=== PATIENT | female | born 1950 | race African-American/Black ===

== ENCOUNTER 2016-04-21 14:31 | Inpatient (IN) | payer MEDICARE ==
[~2016-04-21] VITALS: Ht 170.2 cm; Wt 100.1 kg
--- NOTE | ~2016-04-21 | HEMODYNAMI ---
PATIENT:ARLYN JACOME MEDICAL RECORD: [id number] : 46 [id number] ADMISSION DATE: 04/21/16 Generatedon:04/22/201616:34 Patient name: ARLYN JACOME Patient #: [id number] SSN: [id number] : 1950 Date of study: 04/22/2016 Page: Of Hemodynamic Procedure Report Patient Data Patient Demographics Procedure consent was obtained First Name: ARLYN Gender: Female Last Name: NAA : 1950 [facility] Initial: J Age: 66 year(s) Patient #: [id number] Race: Black SSN: [id number] Additional ID: [id number] Contact details [address]: [address] [place] [address] State: [place] City: [place] Zip code: [address] Past Medical History Allergies Allergen Reaction Date Comments Reported Adhesive tape 04/22/2016 Codeine 04/22/2016 Iodine 04/22/2016 Admission Admission Data Admission Date: 04/21/2016 Admission Time: 18:41 Room #: D.2132 Lab Results Lab Result Date: 04/22/2016 Lab Result Time: 0:00 Biochemistry Name Units Result Min Max Creatinine mg/dl 1.2 --(---*)-- 0.6 1.3 CBC Name Units Result Min Max Hemoglobin g/dl 9.7 *-(----)-- 13.5 17.5 Procedure Procedure Types Cath Procedure Diagnostic Procedure LHC LHC w/Coronaries PCI Procedure Coronary Stent Initial Procedure Description Procedure Date Procedure Date: 04/22/2016 Procedure Start Time: 16:09 Procedure End Time: 16:34 Procedure Staff Name Function Spencer Seo MD Performing Physician Katarina Worrell RT Scrub Shakira Pantoja RN Nurse Yajaira Pacheco RT Monitor Procedure Data Cath Procedure Fluoroscopy Diagnostic fluoroscopy Total fluoroscopy Time: 2.3 time: 2.3 min min Diagnostic fluoroscopy Total fluoroscopy dose: dose: 204.77 mGy 204.77 mGy Contrast Material Contrast Material Type Amount (ml) Isovue 300 76 Entry Location Entry Primary Successful Side Size Upsize Upsize Entry Closure Lowery ccessful Closure Location (Fr) 1 (Fr) 2 (Fr) Remarks Device Remarks Radial Right 6 Fr Unable Mechanical artery Short to Compression advance sheath Femoral Right 5 Fr 6 Fr Vascade artery Short Closure System Estimated blood loss: 5 ml Diagnostic catheters Device Type Used For End Catheter Placement Cordis 5Fr Pigtail LV Angiography Catheter (MP) Cordis 5Fr JL 4.0 Left Coronary Catheter (MP) Angiography Cordis 5Fr 3DRC Catheter Right Coronary (MP) Angiography Procedure Complications No complications Procedure Medications Medication Administration Route Dosage Oxygen NC 2 l/min Heparin Flush Bag added to field 2 bags (1000units/500ml NS) Lidocaine 2% added to field 20 Solumedrol I.V. 125 mg Pepcid I.V. 20 mg Versed I.V. 1 mg Fentanyl I.V. 50 mcg Versed I.V. 1 mg Fentanyl I.V. 50 mcg Fentanyl I.V. 50 mcg Radial Cocktail I.A. 1 syringe (Verapomil 2mg/Nitro 400mcg/Heparin 1500units) Radial Cocktail added to field 1 syringe (Verapomil 2mg/Nitro 400mcg/Heparin 1500units) Heparin Bolus I.V. 4000 units Integrilin (Bolus I.V. 8.5 ml 2mg/ml) Plavix P.O. 600 mg Hemodynamics Rest HGB: 9.7 (g/dl) Heart Rate: 86 (bpm) Snapshots Pre Cath Intra NCS Post Cath Vital Signs Time Heart Resp SPO2 NIBP (mmHg) Rhythm Pain Sedation Rate (ipm) (%) Status Level (bpm) 15:58:29 90 15 98 131/76(105) NSR 0 (11) 10(A) , No pain 16:02:55 85 15 98 134/75(118) NSR 0 (11) 10(A) , No pain 16:07:22 85 18 97 124/69(97) NSR 0 (11) 10(A) , No pain 16:11:44 85 21 95 123/67(97) NSR 0 (11) 9(A) , No pain 16:16:00 87 22 96 98/54(72) NSR 0 (11) 9(A) , No pain 16:20:14 83 18 95 106/59(85) NSR 0 (11) 9(A) , No pain 16:24:30 81 18 95 113/62(84) NSR 0 (11) 10(A) , No pain 16:28:48 82 17 96 107/53(73) NSR 0 (11) 10(A) , No pain 16:33:06 83 20 96 112/60(93) NSR 0 (11) 10(A) , No pain Medications Time Medication Route Dose Verified Delivered Reason Note s Effectiveness by by 16:00:29 Oxygen NC 2 l/min Spencer Shakira Per physician Rayray Pantoja RN 16:00:37 Heparin Flush added 2 bags Spencer Shakira used for Bag to Rayray Pantoja vaccine specialist (1000units/500ml field NS) 16:00:45 Lidocaine 2% added 20ml Spencer Shakira used for to vial Rayray Pantoja vaccine specialist field 16:00:54 Solumedrol I.V. 125 mg Spencer Shakira used for Rayray Pantoja RN procedure 16:00:56 Radial Cocktail added 1 Spencer Spencer used for (Verapomil to syringe Rayray Seo MD procedure 2mg/Nitro field 400mcg/Heparin 1500units) 16:01:05 Pepcid I.V. 20 mg Spencer Shakira Per physician Rayray Pantoja RN 16:06:11 Versed I.V. 1 mg Spencer Shakira for sedation Rayray Pantoja RN 16:06:16 Fentanyl I.V. 50 mcg Spencer Shakira for sedation Rayray Pantoja RN 16:09:05 Versed I.V. 1 mg Spencer Shakira for sedation Rayray Pantoja RN 16:09:08 Fentanyl I.V. 50 mcg Spencer Shakira for sedation Rayray Pantoja RN 16:10:37 Fentanyl I.V. 50 mcg Spencer Shakira for sedation Rayray Pantoja RN 16:11:02 Radial Cocktail I.A. 1 Spencer Spencer for (Verapomil syringe Rayray Seo MD vasodilation 2mg/Nitro 400mcg/Heparin 1500units) 16:23:42 Heparin Bolus I.V. 4000 Spencer Shakira for units Rayray Pantoja RN anticoagulation 16:25:01 Integrilin I.V. 8.5 ml Spencer siu (Bolus 2mg/ml) Rayray Pantoja RN antiplatelet therapy 16:28:27 Plavix P.O. 600 mg Spencer Pantoja RN antiplatelet therapy Procedure Log Time Note 15:40:23 Yajaira Counts RT(R) sent for patient. Start room use. 15:47:06 Informed consent obtained and on chart 15:50:43 Patient received from PCU to CCL 2 Alert and oriented. Tansferred to table in Supine position. 15:57:05 Vital chart was started 16:00:29 Oxygen 2 l/min NC was given by Shakira Pantoja RN; Per physician; 16:00:37 Heparin Flush Bag (1000units/500ml NS) 2 bags added to field was given by Shakira Pantoja RN; used for procedure; 16:00:45 Lidocaine 2% 20ml vial added to field was given by Shakira Pantoja RN; used for procedure; 16:00:54 Solumedrol 125 mg I.V. was given by Shakira Pantoja RN; used for procedure; 16:00:56 Radial Cocktail (Verapomil 2mg/Nitro 400mcg/Heparin 1500units) 1 syringe added to field was given by Spencer Seo MD; used for procedure; 16:01:05 Pepcid 20 mg I.V. was given by Shakira Pantoja RN; Per physician; 16:01:33 Time tracking: Regular hours 16:01:37 Plan of Care:Hemodynamics will remain stable., Cardiac rhythm will remain stable., Comfort level will be maintained., Respiratory function will remain adequate., Patient/ family verbilizes understanding of procedure., Procedure tolerated without complication., Recovers from procedure without complications.. 16:01:52 Warm blankets applied, and omega hugger turned on for patient comfort. 16:01:53 Correct patient and procedure confirmed by team. 16:01:55 ECG and BP/O2 sat monitors applied to patient. 16:02:00 Rhythm: sinus rhythm 16:02:11 Full Disclosure recording started 16:02:32 H&P Date Dictated: 04/21/2016 Within 30 days and on chart.. 16:02:33 Pre-procedure instructions explained to patient. 16:02:33 Pre-op teaching completed and patient verbalized understanding. 16:02:34 Family in waiting room. 16:02:36 Patient NPO since Midnight. 16:03:17 Patient allergic to Adhesive tape 16:03:24 Patient allergic to Codeine 16:03:59 Patient allergic to Iodine 16:04:00 Is the patient allergic to Iodine/contrast media? Yes. 16:04:02 Was the patient premedicated? Yes 16:04:19 Patient diabetic? Yes. 16:04:33 If diabetic: On Metformin? No 16:04:38 Previous problem with sedation/anesthesia? No ? 16:04:40 Snore? Yes 16:04:40 Sleep apnea? Yes 16:04:41 Deviated septum? No 16:04:42 Opens mouth fully? Yes 16:04:44 Sticks out tongue? Yes 16:04:45 Airway obstruction? No ? 16:04:49 Dentures? No ? 16:04:53 Pre procedure: right dorsailis pedis pulse 1+ Palpable, but thready & weak; easily obliterated 16:04:55 Modified Chance's test Ulnar < 7 seconds 16:04:56 Patient pain scale 0/10 ?. 16:05:01 IV patent on arrival in left forearm with 0.9% NaCl at [facility]. 16:05:25 Lab Result : Creatinine 1.2 mg/dl 16:05:25 Lab Result : Hemoglobin 9.7 g/dl 16:05:28 Zero performed for pressure channel P1 16:05:32 Lab results completed and on chart. 16:05:33 Zero performed for pressure channel P1 16:05:42 Right Radial & Right Groin area was prepped with chlora-prep and draped in sterile fashion 16:05:43 Alarms reviewed by R. N. 16:05:43 Sharps counted by scrub and verified by R.N. 16:05:44 Final Timeout: patient, procedure, and site verified with staff and physician. All members of the team are in agreement. 16:05:47 Right Radial site verified by team. 16:05:49 Physical assessment completed. ASA score P 3 - A patient with severe systemic disease as per Spencer Seo MD. 16:05:51 Sedation plan: IV Moderate Sedation Versed, Fentanyl 16:06:11 Versed 1 mg I.V. was given by Shakira Pantoja RN; for sedation; 16:06:16 Fentanyl 50 mcg I.V. was given by Shakira Pantoja RN; for sedation; 16:06:49 Use device set Radial Dx 16:06:50 Acist Syringe opened to sterile field. 16:06:51 Cardinal Cath Pack opened to sterile field. 16:06:51 Bag Decanter opened to sterile field. 16:06:51 Terumo 6Fr Slender Glidesheath opened to sterile field. 16:06:52 St Ravi 260cm J .035 wire opened to sterile field. 16:06:53 Acist Hand Control opened to sterile field. 16:06:53 Acist Manifold opened to sterile field. 16:06:55 Tegaderm 4 x 4 opened to sterile field. 16:07:48 Baseline sample Acquired. 16:09:05 Versed 1 mg I.V. was given by Shakira Pantoja RN; for sedation; 16:09:08 Fentanyl 50 mcg I.V. was given by Shakira Pantoja RN; for sedation; 16:09:44 Procedure started. 16:09:50 Local anesthetic to right radial artery with Lidocaine 2% by Spencer Seo MD.INITIAL ACCESS ONLY 16:10:37 Fentanyl 50 mcg I.V. was given by Shakira Pantoja RN; for sedation; 16:10:56 A 6 Fr Short sheath was inserted into the Right Radial arteryUnable to advance sheath 16:11:02 Radial Cocktail (Verapomil 2mg/Nitro 400mcg/Heparin 1500units) 1 syringe I.A. was given by Spencer Seo MD; for vasodilation; 16:16:16 St Ravi 260cm J .035 wire opened to sterile field. 16:16:41 J wire contaminated 16:17:00 Sheath removed intact; hemostasis achieved with Mechanical Compression to the Right Radial artery. 16:17:10 Local anesthetic to right femoral artery with Lidocaine 2% by Spencer Seo MD.ADDITIONAL ACCESS 16:17:44 A 5 Fr sheath was inserted into the Right Femoral artery 16:17:53 Use device set Multipack Set 16:17:54 Cordis Infinity 5Fr Multipack catheter opened to sterile field. 16:18:17 A Cordis 5Fr Pigtail Catheter (MP) was advanced over the wire and used for LV Angiography. 16:18:24 Terumo 6Fr Maria Stein Sheath opened to sterile field. 16:18:25 Terumo 5Fr Maria Stein Sheath opened to sterile field. 16:18:33 LV gram done using GONZALEZ 16:18:37 EF : 60 % 16:18:38 LV hemodynamics recorded. 16:18:40 Injector settings: Ml/sec: 5, Volume: 15, 16:18:42 Catheter removed. 16:19:08 A Cordis 5Fr JL 4.0 Catheter (MP) was advanced over the wire and used for Left Coronary Angiography. 16:20:15 Catheter removed. 16:20:24 A Cordis 5Fr 3DRC Catheter (MP) was advanced over the wire and used for Right Coronary Angiography. 16:21:45 Catheter removed. 16:22:04 HealthCare.comisper J 300cm 0.014 guide wire opened to sterile field. 16:22:04 HailoixCompak Inflation Kit opened to sterile field. 16:23:10 Medtronic Launcher 6Fr HS I guide catheter opened to sterile field. 16:23:20 Sheath upsized to a 6 Fr Short. 16:23:26 ACC PCI Site: mRCA has ?% stenosis. 16:23:28 ACC Pre-intervention RADHA Flow is 3. 16:23:33 6 Fr HS I guide catheter was inserted over the wire 16:23:42 Heparin Bolus 4000 units I.V. was given by Shakira Pantoja RN; for anticoagulation; 16:24:48 Whisper wire advanced. 16:25:01 Integrilin (Bolus 2mg/ml) 8.5 ml I.V. was given by Shakira Pantoja RN; for antiplatelet therapy; 16:25:21 Inflation Number: 1 A Medtronic Integrity 3.5 X 22 stent was prepped and advanced across the Mid RCA. The stent was deployed at 13 JOEY for 0:06 (min:sec). 16:25:32 Stent catheter was removed intact over wire. 16:25:33 Wire removed. 16:25:33 Guide catheter removed. 16:25:47 Sheath removed intact; hemostasis achieved with Vascade Closure System to the Right Femoral artery. 16:25:49 Procedure ended.(Physican Out) 16:27:35 Fluoroscopy time 02.30 minutes. 16:27:46 Fluoroscopy dose: 204.77 mGy 16:27:46 Flurop Dose total: 204.77 16:27:50 Contrast amount:Isovue 300 76ml. 16:27:51 Sharps counted by scrub and verified by R.N. 16:27:55 TR band inflated with 13cc of air. 16:28:27 Plavix 600 mg P.O. was given by Shakira Pantoja RN; for antiplatelet therapy; 16:29:03 Insertion/operative site no bleeding no hematoma. 16:29:05 Post-op/insertion site Right Femoral artery dressed using a 4 x 4 and Tegaderm. 16:29:09 Post right femoral artery:stable, clean and dry 16:29:20 Post right radial artery:stable, clean and dry 16:29:56 Post Procedure Pulses reassessed and unchanged 16:30:07 Post-procedure physical assessment completed. ASA score P 2 - A patient with mild systemic disease as per Spencer Seo MD. 16:30:11 Post procedure rhythm: sinus rhythm 16:30:13 Estimated blood loss: 5 ml 16:30:15 Post procedure instruction explained to patient.Patient verbalizes understanding. 16:30:16 Patient needs reinforcement of post procedure teaching. 16:30:21 Procedure type changed to Cath procedure, Diagnostic procedure, LHC, LHC w/Coronaries, PCI procedure, Coronary Stent Initial 16:30:26 Procedure Complication : No complications 16:30:28 See physician's report for complete and final results. 16:31:28 Terumo TR Band Standard opened to sterile field. 16:32:37 Vascade 6/7 Fr Closure Device opened to sterile field. 16:32:51 Procedure and supply charges have been captured, reviewed, submitted and are correct. 16:33:01 Vital chart was started 16:34:07 Vital chart was stopped 16:34:10 Report given to PCU. 16:34:13 Patient transfered to PCU with Bed. 16:34:22 Procedure ended. 16:34:22 Full Disclosure recording stopped 16:34:44 End room use (Document Last) Intervention Summary Intervention Notes Time ActionType Lesion and Equipment Action# Pressure Duration Attributes Used 16:25:21 Place stent Mid RCA Medtronic 1 13 00:06 Integrity 3.5 X 22 stent Device Usage Item Name Manufacture Quantity Catalog Hospital Part Current Minima l Lot# / Number Charge Number Stock Stock Serial# Code Acist Acist 1 80651 063281 871058 942116 20 Syringe Medical Systems Inc Cardinal Cardinal 1 [id number] 959342 98725 656958 5 Cath Pack Health Bag Microtek 1 2001S 076190 15410 060286 5 Decanter Medical Inc. Terumo 6Fr Terumo 1 [id number] 045218 812581 377389 [address] St Ravi 2 051860 975150 980461 189671 30 260cm J .035 wire Acist Hand Acist 1 42530 426241 298479 544822 5 Control Medical Systems Inc Acist Acist 1 67572 028460 139688 859077 5 Manifold Medical Systems Inc Tegaderm 4 3M 1 1626W 352630 276488 207698 5 x 4 Cordis Cardinal 1 [id number] 460347 20511 892791 30 Infinity Health 5Fr Multipack catheter Cordis 5Fr Cardinal 1 458316 5 Pigtail Health Catheter (MP) Terumo 6Fr Terumo 1 [id number] 346586 694482 760586 40 Maria Stein Sheath Terumo 5Fr Terumo 1 [id number] 937344 551126 678435 40 Maria Stein Sheath Cordis 5Fr Cardinal 1 598214 5 JL 4.0 Health Catheter (MP) Cordis 5Fr Cardinal 1 656509 5 3DRC Health Catheter (MP) Simms Simms 1 [id number] 854022 386280 261867 5 Whisper J Vascular 300cm 0.014 guide wire Merit Merit 1 [id number] 603494 803193 689654 15 [facility] Medical Inflation Kit Medtronic Medtronic 1 [id number] 089522 76384 351182 1 Launcher 6Fr HS I guide catheter Medtronic Medtronic 1 [id number] 863428 344647 9 [id number] Integrity 3.5 X 22 stent Terumo TR Terumo 1 [id number] 058529 310748 739961 40 Band Standard Vascade 6/7 Cardiva 1 [id number] 904431 088295 704223 5 Fr Closure Medical, Device Inc. Signature Audit [place] Stage Time Signature Unsigned Intra-Procedure 04/22/2016 Yajaira 4:34:54 PM Counts RT(R) Signatures Monitor : Yajaira Signature : Counts RT Date : Time : [address] [place] [address]
[~2016-04-21 14:31] MED LIST: CARAFATE1 G PO; CARDURA2 MG PO; COUMADIN5 MG PO; COZAAR100 MG PO; FERROUS SULFAT325 MG PO; HUMALOG 30100 UNITS/ SC; HYDROCODONE-APA1 TAB PO; KLOR-CON 1010 MEQ PO; LANTUS INSULIN10 ML SC; LASIX40 MG PO; NEXIUM40 MG PO; NORVASC10 MG PO; PROAIR HFA8.5 GM INH; ZEBETA10 MG PO; ZYLOPRIM300 MG PO
[2016-04-21 15:38] LABS: BASOPHILS 0.2 % (0.0-2.0); EOSINOPHILS 2.5 % (0-7); HEMATOCRIT 30.1 % (36.0-48.0); HEMOGLOBIN 9.7 g/dL (12-16); IMMATURE GRANULOCYTES 0.2 % (0-5); LYMPHOCYTES 18.1 % (15-50); MCH 26.9 pg (26.0-34.0); MCHC 32.2 g/dL (31.0-37.0); MCV 83.6 fL (80.0-100.0); MEAN PLATELET VOLUME 10.7 fL (7.4-10.4); MONOCYTES 9.8 % (2-11); NEUTROPHILS 69.2 % (40-80); PLATELET COUNT 271 10x3/uL (130-400); RDW 15.3 % (11.5-14.5); WBC 12.6 10x3/uL (4.8-10.8)
[2016-04-21 16:07] LABS: ALKALINE PHOSPHATASE 136 U/L (46-116); ALT (SGPT) 13 U/L (10-68); BILIRUBIN - TOTAL 0.36 mg/dL (0.2-1.3); CALC OSMOLALITY 280 mosm/kg (275-300); CALCIUM 9.1 mg/dL (8.5-10.1); CARBON DIOXIDE 23.7 mmol/L (21.0-32.0); CHLORIDE - SERUM 104 mmol/L (98-107); CREATININE - SERUM 1.3 mg/dL (0.6-1.3); POTASSIUM - SERUM 3.7 mmol/L (3.5-5.1); PROTEIN - SERUM 7.7 g/dL (6.4-8.2); SODIUM 138 mmol/L (136-145); UREA NITROGEN 16 mg/dL (7-18); eGFR NON AFRICAN AMERICAN 43 mL/min (90-120)
[2016-04-21 16:08] LABS: GLUCOSE 174 mg/dL (74-106)
[2016-04-21 16:15] LABS: CREATINE KINASE 109 UL (21-215)
[2016-04-21 16:17] LABS: TROPONIN-I < 0.017 ng/mL (0.000-0.060)
[2016-04-21 19:18] LABS: INR 1.68 (0.85-1.17); PROTIME 19.8 SECONDS (11.6-15.0)
--- NOTE | 2016-04-21 20:25 | NUR ---
RECEIVED TO ROOM 2131 ALERT AND ORIENTED X3 66 Y/O FEMALE SEEN BY DR NOWAK WITH DX OF UNSTABLE ANGINA. TELEMETRY PLACED. O2 @ 2 L NC IN USE. UP AD PAT W/O DIFF. RESP UNLAB. 4+ PITTING SVETA NNOTED TO BILAT LOWER LEGS AND FEET. DENIES PAIN OR DISCOMFORT AT THIS TIME. RT AC SL INTACT WITH NO R/S NOTED AT SITE. HOB UP SR UP X2. C/L IN REACH. CONTINUE TO MONITOR.
[2016-04-21 21:39] VITALS: BP 130/68
[2016-04-21 22:54] VITALS: BP 130/68; BMI 33.0
[2016-04-22 00:46] VITALS: BP 154/78
--- NOTE | 2016-04-22 03:45 | NUR ---
FFP HUNG AT THIS TIME. VIA GRAVITY TO RT AC WITH NO R/S NOTED AT SITE. VS WNL. DENIES NEEDS C/L IN REACH.
[2016-04-22 04:00] VITALS: BP 145/73
--- NOTE | 2016-04-22 05:00 | NUR ---
SECOND UNIT OF [facility] HUNG AT THIS TIME. DYAN WELL. C/L IN REACH. REMAINS NPO FOR AM PROCEDURE. CONTINUE TO MONITOR.
[2016-04-22 05:39] LABS: BASOPHILS 0.4 % (0.0-2.0); EOSINOPHILS 4.3 % (0-7); MCH 26.6 pg (26.0-34.0); MCHC 31.7 g/dL (31.0-37.0); MCV 83.9 fL (80.0-100.0); MEAN PLATELET VOLUME 10.3 fL (7.4-10.4); MONOCYTES 10.7 % (2-11); NEUTROPHILS 68.6 % (40-80); PLATELET COUNT 224 10x3/uL (130-400); RDW 15.2 % (11.5-14.5)
[2016-04-22 05:47] LABS: HEMOGLOBIN 7.6 g/dL (12-16); RBC 2.86 10x6/uL (4.00-5.40); WBC 7.3 10x3/uL (4.8-10.8)
[2016-04-22 05:51] LABS: ANION GAP 12.1 mmol/L (8-16); CARBON DIOXIDE 25.4 mmol/L (21.0-32.0); CREATININE - SERUM 1.2 mg/dL (0.6-1.3); POTASSIUM - SERUM 3.5 mmol/L (3.5-5.1)
--- NOTE | 2016-04-22 07:45 | NUR ---
INRODUCED MYSELF TO PT PRIMARY RN FOR TODAYS SHIFT. PT IS ALERT AND ORIENTED RESTING QUIETLY IN BED. TELEMETRY IN PLACE AND RUNNING SR. RR NONLABORED ON RA. PT HAS A R.AC PIV WITH DRSG CDI AND SWAB CAPS IN USE. PT IS CURRENTLY NPO FOR A CATH LATER TODAY. BILAT LEGS HAVE +4 PITTING EDEMA WITH THE LEFT LEG SLIGHTLY BIGGER AND OCCASIONALLY WEEPING. PT STATES SHE CANT AMBULATE R/T PAST ORTHO PROBLEMS IN HER R.KNEE. OFFERED SCDS FOR DVT BUT PT REFUSED R/T LEGS BEING TENDER TO TOUCH FROM SWELLING. PT DENIES ANY CURRENT PAIN OR FURTHER NEEDS AT THIS TIME. CL IN REACH, BED IN LOWEST, SIDE RAILS X2. WILL CPOC.
[2016-04-22 09:21] VITALS: BP 130/73
--- NOTE | 2016-04-22 11:46 | NUR ---
BLOOD TRANSFUSING WITHOUT ANY S/S OF REACTION. VSS, SLIGHTLY HYPERTENSIVE BUT IS BASELINE FOR THIS PT. PT RESTING AND DENIES ANY PAIN OR FURTHER NEEDS AT THIS TIME. CL IN REACH. WILL CPOC.
[2016-04-22 12:28] VITALS: BP 152/83
--- NOTE | 2016-04-22 13:47 | NUR ---
TRANSFUSION STILL INFUSING WITHOUT ANY S/S OF REACTION NOTED. PT RESTING QUIETLY, C/O SLIGHT BACK DISCOMFORT WHICH IS CHRONIC AND REQUESTED PRN PAIN MED, NONE ON EMAR SO NOTIFIED DOCTOR AND REC'D ORDERS. PT VOICED THANKS AND DENIES ANY FURTHER NEEDS AT THIS TIME. CL IN REACH, BED IN LOWEST, SIDE RAILS X2. WILL CPOC.
--- NOTE | 2016-04-22 14:42 | NUR ---
PTS BLOOD TRANSFUSION COMPLETED. FLUSHING LINE NOW. SALINE LOCKED PIV WITH DRSG CDI AND SWAB CAPS IN USE. VSS THROUGHOUT ENTIRE TRANSFUSION. PT DENIES ANY NEEDS AT THIS TIME. WILL CPOC.
--- NOTE | 2016-04-22 15:06 | NUR ---
PT REFUSED SCDS R/T HER LEGS BEING SO SWOLLEN AND TIGHT AND ARE OFTEN VERY PAINFUL.
--- NOTE | 2016-04-22 15:47 | NUR ---
CATH CALLED FOR PREOP. PREOP COMPLETED. PT LEAVING FOR SPOT FACER AT THIS TIME. DENIES ANY CURRENT NEEDS. WILL CPOC.
--- NOTE | 2016-04-22 16:49 | NUR ---
PT RETURNED TO ROOM FROM CUSTOMER DEVELOPMENT MANAGER. RR NONLABORED ON RA. BP 137/73 VIA L.ARM. HR 70, TEMP 98.7 AND O2 SAT 98% PT IS AWAKE BUT SLEEPY. RPITAIN HAS DRSG CDI NO S/S OF HEMATOMA OR BLEEDING NOTED. PERIPHERAL PULSES PALP. R.WRIST HAS TR BAND IN PLACE AND IS DRY WITHOUT S/S OF BLEEDING. PT VERBALIZED UNDERSTANDING OF LYING FLAT FOR 4 HOURS. CONNECTED R.AC PIV TO NS @100ML/HR FOR 4 HOURS. PT RESTING AND DENIES ANY FURTHER NEEDS AT THIS TIME. CL IN REACH, BED IN LOWEST, SIDE RAILS X2. WILL CTM.
--- NOTE | 2016-04-22 18:07 | NUR ---
FSBS 328. PT REC'D 8 UNITS PER SS. ORDERED PT A FINGER FOOD TRAY AND SHE IS EATING WHILE STILL LYING BACK ORDERED FROM GIS PHYSICAL SCIENTIST. R.CASEY DRSG CDI NO S/S OF HEMATOMA OR BLEEDING. R.WRIST TR BAND IN PLACE AND CDI WELL. PT RESTING COMFORTABLY EATING DINNER. NO FURTHER NEEDS AT THIS TIME. WILL CPOC.
[2016-04-22 20:53] VITALS: BP 120/69
--- NOTE | 2016-04-23 00:20 | NUR ---
RESTING WITH EYES CLOSED, RESPERATIONS EVEN, NO S/S DISTRESS NOTED.
[2016-04-23 00:41] VITALS: BP 119/58
--- NOTE | 2016-04-23 03:24 | NUR ---
ASSIST PT WITH USE OF BED PACHECO, REPOSITIONED IN BED FOR COMFORT.
--- NOTE | 2016-04-23 03:58 | NUR ---
MEDICAL CENTER REPRESENTATIVE AT BEDSIDE TO OBTAIN VITALS, CALL LIGHT IN REACH. WILL CONTINUE WITH PLAN OF CARE.
[2016-04-23 05:34] VITALS: BP 182/84
--- NOTE | 2016-04-23 07:48 | NUR ---
IN ROOM TALKING WITH PT. PT STATES SHE SLEPT WELL. RR NONLABORED ON RA. PTS R.GROIN DRSG CDI NO S/S OF HEMATOMA NOTED AT SITE. PTS R.AC PIV CAME OUT. CATHETER TIP FULLY INTACT. CLEANED SITE WITH ALCOHOL PAD AND PLACE BANDAID OVER SITE. STATED NO NEED FOR NEW ACCESS. PT RESTING AND DENIES ANY CURRENT PAIN OR NEEDS. CL IN REACH, BED IN LOWEST, SIDE RAILS X2. WILL CPOC.
[2016-04-23 09:12] VITALS: BP 147/74
--- NOTE | 2016-04-23 09:45 | NUR ---
Rehab Note- Order received for Rehab Prescreen. Patient has [employer] Insurance & will requires a Pre Auth prior to IRF stay. Will need a PT & OT eval for Pre Auth with [employer]. Thank you for this referral! Tiffanie Jacob RN Clinical Liaison, [facility]
--- NOTE | 2016-04-23 09:58 | NUR ---
ADMINISTERED MORNING MEDICATIONS. PT REQUESTED AND WAS PROVIDED WITH PRN PAIN PILL FOR BACK PAIN. PT RESTING QUIETLY IN BED JUST REC'D FULL BED BATH AND ALL LINENS AND GOWN WAS CHANGED. NEW TELEMETRY ELECTRODES PLACE. PT RUNNING SR. PT DENIES ANY FURTHER NEEDS AT THIS TIME. CL IN REACH, BED IN LOWEST, SIDE RAILS X2. WILL CPOC.
[2016-04-23 12:15] VITALS: BP 135/66
[2016-04-23 13:27] LABS: BASOPHILS 0.1 % (0.0-2.0); EOSINOPHILS 0 % (0-7); HEMATOCRIT 30.8 % (36.0-48.0); HEMOGLOBIN 10.1 g/dL (12-16); IMMATURE GRANULOCYTES 0.2 % (0-5); LYMPHOCYTES 6.5 % (15-50); MCH 27.3 pg (26.0-34.0); MCHC 32.8 g/dL (31.0-37.0); MCV 83.2 fL (80.0-100.0); MEAN PLATELET VOLUME 11.2 fL (7.4-10.4); NEUTROPHILS 87.2 % (40-80); PLATELET COUNT 234 10x3/uL (130-400); WBC 13.5 10x3/uL (4.8-10.8)
[2016-04-23 13:33] LABS: ANION GAP 13.7 mmol/L (8-16); CALCIUM 8.5 mg/dL (8.5-10.1); CARBON DIOXIDE 23.1 mmol/L (21.0-32.0); CREATININE - SERUM 1.4 mg/dL (0.6-1.3); POTASSIUM - SERUM 3.8 mmol/L (3.5-5.1)
--- NOTE | 2016-04-23 15:59 | NUR ---
Patient Name: ARLYN JACOME Admission Status: ER Accout number: [id number] Admission Date: 04-22-2016 : 1950 Admission Diagnosis: Attending: MARILUZ Current LOS: 1 Anticipated DC Date: Planned Disposition: Inpatient Rehab Primary Insurance: [employer] MEDICARE ADV Discharge Planning Comments: * Is the patient Alert and Oriented? Yes 0 * How many steps to enter\exit or inside your home? NONE 0 * PCP DR. HERERRA 0 * Pharmacy [facility] 0 * Preadmission Environment Home Alone 0 * ADLs Independent 0 * Equipment Other Oxygen Walker 0 * Other Equipment HOME OXYGEN POWER WHEELCHAIR [employer] [facility] MEDICAL EQUIP[facility] PROVIDER PREFERENCE 0 * List name and contact numbers for known caregivers / representatives who currently or will assist patient after discharge: PORTIA BETH, DAUGHTER, 0 * Community resources currently utilized None 0 * Please name any agencies selected above. NONE 0 * Additional services required to return to the preadmission environment? Yes * Can the patient safely return to the preadmission environment? Yes 0 * Has this patient been hospitalized within the prior 30 days at any hospital? No 0 CM RECEIVED ORDER FOR INPATIENT REHAB PRESCREEN, MET WITH PT IN ROOM TO DISCUSS DISCHARGE PLANNING AND NEEDS. PT REPORTS LIVING AT HOME INDEPENDENTLY AND ALONE. PT HAS POWER WHEELCHAIR THAT IS NOT WORKING WELL AND PT IS TRYING TO WAIT ONE MORE YEAR SO SHE CAN GET A NEW ONE. PT HAS A WALKER AND HOME OXYGEN THAT SHE USES NEEDED. PT'S PROVIDER OF CHOICE IS [employer] [facility] [employer]. PT HAS NO OUTSIDE SERVICES ASSISTING IN THE HOME. FAMILY TO ADMINISTRATIVE ASSISTANT FRONT DESK AT DISCHARGE. CM DISCUSSED AVAILABILITY OF HOME HEALTH, REHAB SERVICES AND MEDICAL EQUIPMENT. PT REQUESTED INPATIENT REHAB SERVICES AT [facility]. PT REPORTS HAVING HAD REHAB IN [place] BEFORE WITH GOOD RESULTS, PT PLANS TO DISCHARGE HOME INDEPENDENTLY AFTER REHAB. IMPORTANT MESSAGE FROM MEDICARE PROVIDED AND EXPLAINED. CM SPOKE TO FLAVIO OF INPATIENT REHAB WHO INFORMED CM THAT PT WILL REQUIRE BOTH PT AND OT EVALUATIONS AND AUTHORIZATION FROM INSURANCE. INPATIENT REHAB TO MONITOR AND WILL COMPLETE SCREENING AND SUBMIT FOR INSURANCE AUTHORIZATION THAT MAY TAKE SEVERAL DAYS. DR. NOWAK NOTIFIED. PT NOTIFIED. CM WAITING COMPLETION OF PT AND OT EVALUATIONS, REHAB PRESCREEN AND INSURANCE AUTHORIZATION FOR INPATIENT REHAB SERVICES. Foundation Maker: Sedrick Curran
[2016-04-23 16:00] VITALS: BP 147/71
--- NOTE | 2016-04-23 16:23 | OP ---
PATIENT NAME: ARLYN JACOME MEDICAL RECORD: [id number] :46 LOCATION:D.M2 D.2132 ADMISSION DATE:04/22/16 SURGEON: FRANKY NOWAK MD DATE OF OPERATION: 04/22/2016 PROCEDURES: 1. PTCA stent RCA. 2. Left heart catheterization. 3. Selective coronary angiography. 4. Left ventriculogram. INDICATION: Unstable angina and coronary artery disease. PROCEDURE IN DETAIL: After informed consent was obtained and after detailed explanation of risks, benefits as well as alternative therapies, the patient elected to proceed with angiogram and angioplasty. The right femoral area was prepped and draped in normal sterile fashion. The right femoral artery was cannulated via modified Seldinger technique with placement of 6-Kosovan sheath. All catheters exchanged through this sheath. FINDINGS: The left ventriculogram was performed in standard 30-degree GONZALEZ view, reveals good cardiac wall motion throughout all segments. Overall ejection fraction estimated 60%. SELECTIVE CORONARY ANGIOGRAPHY: 1. Left main is with no significant angiographic disease. 2. Left anterior descending has moderate irregularities, but no flow-limiting stenosis. 3. The left circumflex shows moderate irregularities, but no flow-limiting stenosis. 4. The right coronary has a 75% to 80% stenosis in the mid vessel. PTCA STENT OF THE RIGHT CORONARY: The stent used was a 3.5 x 22 mm Integrity. Result was 0% residual stenosis. OVERALL IMPRESSION: Successful percutaneous transluminal coronary angioplasty stent of the right coronary artery going from 75-80% initial stenosis to 0% residual stenosis. TRANSINT:[id number] Voice Confirmation ID: [id number] DOCUMENT ID: [id number] FRANKY NOWAK MD at 1623 CC: [id number] DICTATION DATE: 04/22/16 1631 COMPUTER TECH: 04/22/16 2309 [place] [address]
--- NOTE | 2016-04-23 16:23 | HP ---
PATIENT: ARLYN CHAWLA MEDICAL RECORD: [id number] ACCOUNT: [id number] LOCATION:[address] : [birth year] ADMISSION DATE: 04/22/16 HISTORY AND PHYSICAL EXAMINATION ADMITTING DIAGNOSES: 1. Chest pain followed with angina. 2. Coronary artery disease. 3. Previous myocardial infarction. 4. Insulin-dependent diabetes. 5. Hypertension. 6. Hyperlipidemia. HISTORY OF PRESENT ILLNESS: Mrs. Chawla has a past history of coronary artery disease, previous myocardial infarction, the last being in the . Last cardiac catheterization was as well in the . She did not have any stents at that time. She has had approximately 1 week of increasing episodes of chest. She ____ class IV unstable anginal symptomatology. Troponin is normal. PHYSICAL EXAMINATION: GENERAL APPEARANCE: Well-nourished, well-developed, appears stated age. Level of distress, comfortable. PSYCHIATRIC: Mental status, alert, normal affect. Orientation, oriented to time, place and person. EYES: Lids and conjunctiva, noninjected. No discharge, no pallor. ENT: Lips, teeth, gums, normal dentition. Oropharynx, no cyanosis, no pallor. NECK: Carotid arteries, bilateral normal upstroke, no bruits, no thrills. JUGULAR VEINS: No jugular venous pressure or distention. CERVICAL LYMPH NODES: Nontender, nonenlarged. THYROID: Not enlarged. Nontender. No nodules. LUNGS: Respiratory effort, unlabored. CHEST: Normal curvature. No thoracic deformity. No chest wall tenderness. Percussion, resonant. Auscultation, clear. No wheezes, no rales, no rhonchi. CARDIOVASCULAR: Precordial exam, nondisplaced. No heaves or pericardial thrills. Rate and rhythm, regular. Heart sounds, normal S1, normal S2. No S3, no gallop, no rub. Systolic murmur, not heard. Diastolic murmur, not heard. EXTREMITIES: No cyanosis, no edema. Peripheral pulses, full and equal in all extremities, except as noted. No bruits appreciated. ABDOMEN: Soft, nondistended. Normal aorta. No bruit. Nontender. No masses. Liver, nontender, no hepatomegaly. Spleen, nontender, no splenomegaly. MUSCULOSKELETAL: No joint tenderness. No joint swelling. No erythema. NEUROLOGICAL: Normal gait, normal strength, normal tone. SKIN: Warm and dry. REVIEW OF SYSTEMS: The patient reports easy bruising but reports no swollen glands. The patient reports no fever, no night sweats, no significant weight gain, no significant weight loss. No significant exercise tolerance. The patient reports no dry eyes, no irritation, no vision change. Patient reports no difficulty hearing and no ear pain. Patient reports no frequent nose bleeds or nose and sinus problems. Patient reports on arm pain on exertion. No shortness of breath while lying down. No history of heart murmur. Patient reports no cough, no wheezing or coughing up blood. Patient reports no abdominal pain, no vomiting. Normal appetite. No diarrhea and not vomiting blood. No nausea and no constipation. Patient reports no incontinence. No difficulty urinating. No hematuria. No increased frequency. Patient reports HISTORY AND PHYSICAL [id number] ARLYN CHAWLA no muscle aches. No weakness, no arthralgias, no back pain. No swelling of the extremities. Patient reports no abnormal mole, no jaundice, no rashes. Reports no loss of consciousness. No weakness and no numbness. No seizures, dizziness, or headaches. The patient reports no depression, no sleep disturbance, feeling safe in a relationship and no alcohol abuse. Patient reports on fatigue. Reports no runny nose or sinus pressure. No itching, no hives, and no frequent sneezing. OVERALL IMPRESSION: Chest pain compatible with angina, most likely she has hemodynamically significant coronary artery disease. She is on Coumadin for a past history of atrial fibrillation. INR is 1.68, will give FFP as well. She has an IODINE ALLERGY. We will give prednisone. Plan for cardiac catheterization in the a.m. as for the diabetes, will consult Dr. Moreno for diabetic management. TRANSINT:[id number] Voice Confirmation ID: [id number] DOCUMENT ID: [id number] FRANKY NOWAK MD at 1623 CC: [id number] DICTATION DATE: 04/21/162328 DAIRY ASSOCIATE: 04/21/16 2342 [place] [address]
--- NOTE | 2016-04-23 20:00 | NUR ---
ASSESSMENT COMPLETE, A&O. RESPERATIONS EVEN ON ROOM AIR. DRSG TO RIGHT GROIN C/D/I. NO SWELLING, BLEEDING OR HEMATOMA NOTED. PEDAL PULSES PRESENT. 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 PT DENIES PAIN OR NEEDS, VISITOR AT BED SIDE. BED LOW, CL IN REACH.
[2016-04-23 20:41] VITALS: BP 137/71
[2016-04-24 02:28] VITALS: BP 125/72
--- NOTE | 2016-04-24 03:53 | NUR ---
RESTING WITH EYES CLOSED, RESPERATIONS EVEN, NO S/S DISTRESS NOTED.
--- NOTE | 2016-04-24 05:32 | NUR ---
CALL LIGHT IN REACH. WILL CONTINUE WITH PLAN OF CARE.
--- NOTE | 2016-04-24 06:20 | NUR ---
AM BLOOD SUGAR CHECK, 169, PT STATED THAT SHE WANTED TO WAIT UNTIL LATER TO GET INSUIN COVERAGE WITH BREAKFAST BEAUSE SHE IS WORRIED THAT HER BS MAY DROP TO LOW. ASSIST TO WITH BED PACHECO, PT DENIES OTHER NEEDS.
[2016-04-24 07:11] LABS: BASOPHILS 0.2 % (0.0-2.0); EOSINOPHILS 0.3 % (0-7); HEMATOCRIT 29.9 % (36.0-48.0); HEMOGLOBIN 9.7 g/dL (12-16); IMMATURE GRANULOCYTES 0.3 % (0-5); LYMPHOCYTES 16.2 % (15-50); MCH 27.4 pg (26.0-34.0); MCHC 32.4 g/dL (31.0-37.0); MCV 84.5 fL (80.0-100.0); MEAN PLATELET VOLUME 10.3 fL (7.4-10.4); MONOCYTES 8.9 % (2-11); NEUTROPHILS 74.1 % (40-80); PLATELET COUNT 253 10x3/uL (130-400); RBC 3.54 10x6/uL (4.00-5.40); RDW 15.5 % (11.5-14.5); WBC 14.9 10x3/uL (4.8-10.8)
[2016-04-24 07:27] LABS: ANION GAP 11.8 mmol/L (8-16); CALCIUM 8.1 mg/dL (8.5-10.1); CARBON DIOXIDE 24.8 mmol/L (21.0-32.0); CREATININE - SERUM 1.2 mg/dL (0.6-1.3); POTASSIUM - SERUM 3.6 mmol/L (3.5-5.1)
[2016-04-24 08:10] VITALS: BP 124/68
[2016-04-24 11:18] VITALS: Ht 170.2 cm; Wt 100.1 kg
[2016-04-24 12:14] VITALS: BP 114/62
--- NOTE | 2016-04-24 12:16 | NUR ---
atient Name: ARLYN JACOME Encounter No: [id number] : 1950 Primary Insurance: [employer] MEDICARE ADV Anticipated DC Date: Planned Disposition: Inpatient Rehab External Planned Provider: : DCP follow-up note: Patient and family in agreement with discharge plan. No changes to plan. Case management will follow and assist as needed. CM WAITING COMPLETION OF PT AND OT EVALUATIONS, REHAB PRESCREEN AND INSURANCE AUTHORIZATION FOR INPATIENT REHAB SERVICES. Vanessa Nails RN/CM
--- NOTE | 2016-04-24 14:05 | NUR ---
Reviewed patient's chart for IRF. She is still lacking an OT eval. [facility] will not accept a request for authorization until the PT and OT evals are completed. Sue Stein RN CL
[2016-04-24 15:54] VITALS: BP 108/69
[2016-04-24 19:10] LABS: SPE - A/G RATIO 0.7 (0.7-1.7); SPE - ALBUMIN 2.6 g/dL (2.9-4.4); SPE - ALPHA-1 GLOBULIN 0.4 g/dL (0.0-0.4); SPE - ALPHA-2 GLOBULIN 0.7 g/dL (0.4-1.0); SPE - GAMMA GLOBULIN 1.7 g/dL (0.4-1.8); SPE - M-SPIKE Not Observed g/dL (Not Observed); SPE - TOTAL PROTEIN 6.4 g/dL (6.0-8.5)
[2016-04-24 20:00] VITALS: BP 126/71
[2016-04-25] VITALS: BP 144/76
[2016-04-25 04:00] VITALS: BP 137/80
[2016-04-25 08:12] VITALS: BP 135/85
--- NOTE | 2016-04-25 09:15 | NUR ---
FSBS 140 NO INSULIN REQUIRED PER SS. PT ALERT AND ORIENTED RESTING QUIETLY IN BED. PT C/O BACK PAIN REQUESTING AND PROVIDED WITH PRN NORCO. PT NOW AGREES TO HAVE BOWEL REGIMEN AFTER REFUSING YESTERDAY AND WANTS A STOOL SOFTNER ORDERED. WILL GET ORDER FROM DOCTOR. PT DENIES ANY FURTHER NEEDS AT THIS TIME. CL IN REACH, BED IN LOWEST, SIDE RAILS X2. WILL CPOC.
[2016-04-25 12:03] VITALS: BP 178/79
[2016-04-25 12:03] LABS: BASOPHILS 0.3 % (0.0-2.0); EOSINOPHILS 3.6 % (0-7); HEMATOCRIT 30.2 % (36.0-48.0); HEMOGLOBIN 9.8 g/dL (12-16); IMMATURE GRANULOCYTES 0.2 % (0-5); LYMPHOCYTES 19.6 % (15-50); MCH 27.6 pg (26.0-34.0); MCHC 32.5 g/dL (31.0-37.0); MCV 85.1 fL (80.0-100.0); MEAN PLATELET VOLUME 10.8 fL (7.4-10.4); MONOCYTES 11.7 % (2-11); NEUTROPHILS 64.6 % (40-80); PLATELET COUNT 258 10x3/uL (130-400); RBC 3.55 10x6/uL (4.00-5.40); RDW 15.5 % (11.5-14.5); WBC 10.3 10x3/uL (4.8-10.8)
[2016-04-25 16:22] VITALS: BP 118/66
[2016-04-25 21:48] VITALS: BP 130/84
--- NOTE | 2016-04-25 22:48 | NUR ---
PT LAYING IN BED ON LEFT SIDE AND NO DISTRESS OBSERVED RESPERATIONS EVEN AND UNLABORED ON ROOM AIR CALL LIGHT IN REACH SRX2 BED LOW AND LOCKED PM MEDS ADMIN ORDERED WILL MONITOR
[2016-04-26 00:30] VITALS: BP 140/79
[2016-04-26 04:30] VITALS: BP 153/83
[2016-04-26 06:15] LABS: BASOPHILS 0.2 % (0.0-2.0); EOSINOPHILS 5.3 % (0-7); HEMATOCRIT 29.8 % (36.0-48.0); HEMOGLOBIN 9.4 g/dL (12-16); IMMATURE GRANULOCYTES 0.2 % (0-5); LYMPHOCYTES 19.4 % (15-50); MCH 27.2 pg (26.0-34.0); MCHC 31.5 g/dL (31.0-37.0); MCV 86.1 fL (80.0-100.0); MEAN PLATELET VOLUME 11.3 fL (7.4-10.4); MONOCYTES 12.6 % (2-11); NEUTROPHILS 62.3 % (40-80); PLATELET COUNT 249 10x3/uL (130-400); RBC 3.46 10x6/uL (4.00-5.40); RDW 15.8 % (11.5-14.5)
[2016-04-26 06:40] LABS: ALBUMIN 2.1 g/dL (3.4-5.0); ANION GAP 10.8 mmol/L (8-16); BILIRUBIN - TOTAL 0.1 mg/dL (0.2-1.3); CALCIUM 8.2 mg/dL (8.5-10.1); CARBON DIOXIDE 26.1 mmol/L (21.0-32.0); POTASSIUM - SERUM 3.9 mmol/L (3.5-5.1)
[2016-04-26 08:01] VITALS: BP 147/90
[2016-04-26 12:00] VITALS: BP 152/87
[2016-04-26 14:00] VITALS: BP 143/77
[2016-04-26 20:30] VITALS: BP 134/78
--- NOTE | 2016-04-26 22:50 | NUR ---
RESUMED CARE OF PT AT THIS TIME CALL LIGHT IN REACH SR X2 BED LOW AND LOCKED NO DISTRESS OBSERVED RESPERATIONS EVEN AND UNLABORED ON ROOM AIR WILL MONITOR
[2016-04-27 00:30] VITALS: BP 126/80
--- NOTE | 2016-04-27 01:28 | NUR ---
PT LAYING IN BED EYES CLOSED AND PT APPERS TO BE SLEEPING NO DISTRESS OBSERVED AT THIS TIME CALL LIGHT IN REACH WILL MONITOR
[2016-04-27 04:30] VITALS: BP 126/78
--- NOTE | 2016-04-27 06:44 | NUR ---
RECEIVED REPORT FROM COLLISION CENTER MANAGER NURSE, GIGI DAY. PT IN BED, DENIES ANY NEEDS AT THIS TIME. CALL LIGHT IN REACH, NAD NOTED, WILL CONTINUE TO MONITOR.
[2016-04-27 08:00] VITALS: BP 128/73
--- NOTE | 2016-04-27 08:40 | NUR ---
ADMINISTERED MORNING MEDICATIONS, PT IN BED, HELPED PT WITH BED PACHECO. INFOMRED PT TO CALL WHEN SHE IS DONE USING BEDPAN. PT DENIES ANY OTHER NEEDS AT THIS TIME. CALL LIGHT IN REACH, NAD NOTED, WILL CONTINUE TO MONITOR.
--- NOTE | 2016-04-27 10:15 | NUR ---
ADMINSTERED NORCO 10MG FOR PAIN LEVEL OF 9/10. PT UP TO CHAIR, DENIES ANY OTHER NEEDS AT THIS TIME.CALL LIGHT IN REACH, NAD NOTED, WILL CONTINUE TO MONITOR.
[2016-04-27 12:00] VITALS: BP 109/64
--- NOTE | 2016-04-27 12:54 | NUR ---
Nutrition follow-up: Diet: ADA consistent CHO PO intake 100% of meals Labs reviewed Wt: 220# Pt with good po intake @ this time. RDN following.
--- NOTE | 2016-04-27 15:35 | NUR ---
All information has been submitted to [facility] for authorization for inpatient rehab. It is doubtful they will approve because PT has not attempted to walk her nor does she seem interested in doing so. To qualify for IRF she must be able and willing to participate in 3 hrs of therapy every day 5 days a week. Sue Stein RN Clinical Liaison, Rehab
[2016-04-27 16:00] VITALS: BP 106/45
--- NOTE | 2016-04-27 16:50 | NUR ---
ADMINISTERED 8 UNITS OF HUMALOG FOR BLOOD SUGAR OF 233, PER SLIDING SCALE. ALSO PLACED PT ON BED PACHECO AND HELPED HER OFF, PT ONLY URINATED. PT DENIES ANY OTHER NEEDS AT THIS TIME. CALL LIGHT IN REACH, NAD NOTED, WILL CONTINUE TO MONITOR.
--- NOTE | 2016-04-27 19:59 | NUR ---
RECEIVED REPORT, PT SLEEPING, ON ROOMAIR, [id number], CALL LIGHT IN REACH, BED IS LOW, SRX2
[2016-04-27 21:27] VITALS: BP 131/75
[2016-04-28] VITALS: BP 134/76
[2016-04-28 04:00] VITALS: BP 128/71
--- NOTE | 2016-04-28 04:48 | NUR ---
PT LAYING IN BED NO DISTRESS OBSERVED CALL LIGHT IN REACH SRX2 BED LOW AND LOCKED WILL MONITOR
--- NOTE | 2016-04-28 04:53 | NUR ---
SLEEPING ON L.SIDE, CALL LIGHT IN REACH, BED IS LOW, SRX2
--- NOTE | 2016-04-28 07:15 | NUR ---
RECIEVED REPORT ON PATIENT, PATIENT IS ALERT AND ORIENTED AT THIS TIME. PATIENT IS SR ON MONITOR WITH A RATE OF 87 AT THIS TIME. PATIENT IS ON ROOM AIR WITH NAD NOTED AT THIS TIME, CHEST RISES AND FALLS EQUALLY. PATIENT DENIES ANY NEEDS OR COMPLAINTS AT THIS TIME. BED IS LOW AND LOCKED. CALL LIGHT IN REACH. CPOC
[2016-04-28 08:07] VITALS: BP 120/65
--- NOTE | 2016-04-28 09:15 | NUR ---
MORNING MEDICATION GIVEN, ASSESSMENT DONE. PATIENT STATES HER PAIN LEVEL IS 6/10 IN HER BACK AND DOWN HER SIDE BUT DENIES THE NEEDS FOR PAIN MEDICATION AT THIS TIME. WILL CONT TO MONITOR PATIENT. CPOC
--- NOTE | 2016-04-28 09:34 | NUR ---
Rehab Note- The patient has [employer] benefits- Pre Auth has been sent for approval for possible IRF stay. Awaiting approval. Will continue to monitor. Tiffanie Jacob RN Clinical Liaison, Rehab Care/Veronica
--- NOTE | 2016-04-28 10:59 | NUR ---
PHYSICAL THERAPY GOT PATIENT UP IN CHAIR. PATIENT DENIES ANY NEEDS. CPOC
[2016-04-28 12:14] VITALS: BP 135/75
--- NOTE | 2016-04-28 12:45 | NUR ---
PATIENT SITTING UP IN BED EATING LUNCH, DENIES ANY NEEDS CPOC
[2016-04-28 15:45] VITALS: BP 121/61
--- NOTE | 2016-04-28 16:00 | NUR ---
PATIENT RESTING AT THIS TIME. DENIES ANY NEEDS. STATES PAIN 6/10 IN BACK AND SIDE. BUT DENIES NEEDS FOP PAIN MEDICATION AT THIS TIME. WILL CONT TO MONITOR
--- NOTE | 2016-04-28 17:32 | NUR ---
PATIENT FSBS 161, 4 UNITS OF HUMALOG GIVEN. CPOC
--- NOTE | 2016-04-28 17:45 | NUR ---
PATIENT SITTING UP IN BED VISITING WITH FRIEND. PATIENT DENIES ANY NEEDS. CPOC
[2016-04-28 19:00] VITALS: BP 115/78
--- NOTE | 2016-04-28 19:32 | NUR ---
RECEIVED REPORT, ASSIST PT WITH BEDPAN, [id number], BED IS LOW, SRX2, CALL LIGHT IN REACH
--- NOTE | 2016-04-29 01:18 | NUR ---
PT LAYING IN BED EYES CLOSED NO DISTRESS OBSERVED AT THIS TIME RESPERATIONS EVEN AND UNLBAORED ON ROOM AIR BED LOW AND LOCKED CALL LIGHT IN REACH SRX2 WILL MONITOR
[2016-04-29 04:00] VITALS: BP 116/70
--- NOTE | 2016-04-29 06:08 | NUR ---
SLEEPING, CALL LIGHT IN REACH, BED IS LOW, SRX2
--- NOTE | 2016-04-29 07:31 | NUR ---
RECIEVED REPORT ON PATIENT, PATIENT IS ALERT AND ORIENTED AT THIS TIME. PATIENT IS SR ON MONITOR WITH A RATE OF 70 AT THIS TIME. PATIENT DENIES ANY NEEDS OR PAIN AT THIS TIME. AWAITING REHAB PLACEMENT. WILL CONT TO MONITOR. CPOC
[2016-04-29 08:12] VITALS: BP 150/76
--- NOTE | 2016-04-29 09:30 | NUR ---
MORNING MEDICATION GIVEN, NO ISSUES. ASSESSMENT DONE. PATIENT DENIES ANY NEEDS AT THIS TIME. WILL CONT TO MONITOR
--- NOTE | 2016-04-29 10:25 | NUR ---
Recieved a call from Erin with [employer] managed medicare. Acute Inpatient Rehab is denied for this patient. She has not been able to ambulate and the medical device sales feels she is more skilled appropriate. This information has been relayed to the [facility]. Sue Stein RN Clinical Liaison, Rehab
--- NOTE | 2016-04-29 11:30 | NUR ---
PATIENT FSBS 129. NO INSULIN REQUIRED. CPOC
[2016-04-29 12:04] VITALS: BP 138/80
[2016-04-29] MEDS ORDERED: ASPIRIN81 MG PO (12:56)
[2016-04-29] MEDS ORDERED: PLAVIX75 MG PO (12:56)
--- NOTE | 2016-04-29 14:00 | NUR ---
PATIENT GIVEN NORCO FOR PAIN 10/10 IN SHOULDER, BACK AND COCCYX. ACHING PAIN. WILL MONITOR. CPOC
[2016-04-29 16:25] VITALS: BP 128/73
--- NOTE | 2016-04-29 16:30 | NUR ---
PATIENT STATES PAIN IS GETTING BETTER, 11/26. WILL MONITOR. FSBS 163, 4 UNITS OF HUMALOG GIVEN. CPOC
--- NOTE | 2016-04-29 18:38 | NUR ---
PATIENT SITTING UP IN BED, VISITIORS AT BEDSIDE, PATIENT DENIES ANYNEEDS OR COMPLAINTS. CPOC
--- NOTE | 2016-04-29 19:30 | NUR ---
RECEIVED REPORT, WATCHING TV, DENIES ANY NEEDS, CALL LIGHT IN REACH, BED IS LOW, SRX2, [id number], WILL CONTINUE TO MONITOR
[2016-04-29 20:00] VITALS: BP 122/64
[2016-04-30] VITALS: BP 130/67
--- NOTE | 2016-04-30 02:26 | NUR ---
LYING IN BED WITH CALL LIGHT IN REACH. WILL CONTINUE WITH PLAN OF CARE.
[2016-04-30 04:00] VITALS: BP 134/77
--- NOTE | 2016-04-30 05:13 | NUR ---
ASSISTED PT ON BEDPAN, BED IS LOW, SRX2, CALL LIGHT IN REACH
--- NOTE | 2016-04-30 07:15 | NUR ---
RECIEVED REPORT ON PATIENT, PATIENT IS ALERT AND ORIENTED AT THIS TIME. PATIENT DOES NOT AN IV AT THIS TIME. PATIENT IS GOING TO REHAB TODAY. PATIENT IS SR ON MONITOR WITH A RATE OF 64 AT THIS TIME. DENIES ANY PAIN OR NEEDS. WILL CONT TO MONITOR PATIENT. CPOC
[2016-04-30 08:43] VITALS: BP 127/73
--- NOTE | 2016-04-30 09:15 | NUR ---
MORNING MEDICATION GIVEN, ASSESSMENT DONE. DENIES ANY NEEDS. CPOC
--- NOTE | 2016-04-30 11:15 | NUR ---
PATIENT FSBS 152, 4 UNITS OF HUMALOG GIVEN. CPOC
[2016-04-30 12:11] VITALS: BP 138/79
--- NOTE | 2016-04-30 14:22 | NUR ---
PATIENT RESTING IN BED, DENIES ANY NEEDS OR PAIN AT THIS TIME. WILL CONT TO MONITOR PATIENT. CPOC
[2016-04-30 16:00] VITALS: BP 140/66
--- NOTE | 2016-04-30 16:12 | NUR ---
PATIENT SEEN FOR TRANSFER TRAINING. PATIENT REQUIRES MOD ASSIST FOR BED MOBILITY AND SUPINE TO SIT. PATIENT ABLE TO TRANSFER FROM BED TO CHAIR AND BACK TO BED WITH HIGH MOD/LOW MAX ASSIST. OVERALL BALANCE WAS FAIR, POOR AT TIMES. PATIENT WOULD BENEFIT FROM SKILLED PLACEMENT TO IMPROVE STRENGTH AND INDEPENDENCE IN ADLs. MARY ELLEN CELAYA, PT, DPT
--- NOTE | 2016-04-30 17:05 | NUR ---
REPORT GIVEN TO RHONDA TRUJILLO AT [facility]. DENIES ANY QUESTIONS. CPOC
--- NOTE | 2016-04-30 17:25 | NUR ---
PATIENT GIVEN DC INSTRUCTIONS, [employer] IS PROVIDED WITH PAPERWORK, WILL GIVE PAPERWORK TO [facility]. PATIENT DENIES ANY QUESTIONS. CPOC
--- NOTE | 2016-04-30 17:25 | NUR ---
Patient Name: ARLYN JACOME Encounter No: [id number] : 1950 Primary Insurance: [employer] MEDICARE ADV Anticipated DC Date: 04-30-2016 Planned Disposition: Custodial Facility External Planned Provider: [facility], MEDICARE REHAB BED DCP follow-up note: CM RECEIVED DENIAL OF INPATIENT REHAB BY PT'S INSURANCE FROM [facility] ON 04-29-16. CM SPOKE TO PT IN ROOM AND NOTIFIED OF DENIAL, DISCUSSED REHAB OPTIONS. PT REPORTS SHE IS NOT ABLE TO STAND TO RETURN HOME AND STATED THAT SHE WANTED TO THINK ABOUT IT AND WOULD LET CM KNOW. CM EXPLAINED THAT IF PT IS NOT ABLE TO SAFELY GO HOME, SHE ONLY HAS ONE OPTION, [facility]. PT CONSENTED TO REHAB SCREENING BY [facility] AND WILL GO IF AUTHORIZED BY INSURANCE. CM FAXED REFERRAL TO [facility]. CM CALLED [facility] ON MORNING OF 04-30-16 AND WAS ADVISED THAT [facility] HAS SUBMITTED FOR AND IS PENDING AUTH FROM PT'S INSURANCE. BARB NIETO SPOKE TO PT'S INSURANCE COMPANY AND FACILITATED AUTHORIZATION. PT NOTIFIED WHO IS WILLING TO GO TO [facility] TODAY. BRAB NIETO COMMUNICATED WITH NEVILLE SCHMITT [facility], PROVIDED AUTHORIZATION NUMBER. [facility] K[facility] TO PULP REFINER OPERATOR PT TODAY FOR TRANSFER TO REHAB. CM FAXED DISCHARGE INFORMATION TO [facility] AT [phone]. NURSE REPORT TO BE CALLED TO [facility] AT [phone]. [employer] KIT TO PULP REFINER OPERATOR PT TODAY. Sedrick Curran, CASE MANAGEMENT
--- NOTE | 2016-04-30 17:40 | NUR ---
[facility] HERE FOR TRANSPORT, GIVEN DC PAPERWORK AND INSTRUCTIONS. CPOC
--- NOTE | 2016-05-01 11:11 | DS ---
PATIENT:ARLYN CHAWLA :[birth year] MEDICAL RECORD: [id number] DISCHARGE SUMMARY ADMISSION DATE: 04/22/16 DISCHARGE DATE: 04/30/16 DISCHARGE DIAGNOSES: 1. Angina. 2. Coronary artery disease. 3. Percutaneous transluminal coronary angioplasty stent this admission. 4. Diabetes. 5. Hypertension. 6. Chronic obstructive pulmonary disease. HOSPITAL COURSE: Mrs. Chawla presents with anginal symptomatology, found to have single-vessel coronary artery disease, underwent successful PTCA stent with a bare metal stent, had an uneventful course from a cardiac standpoint. She had trouble ambulating, which was not a new problem. She requested rehabilitation evaluation. She was turned down for inpatient rehabilitation. She went to a senior living facility after this. The only change in her medication is the addition of aspirin and Plavix to her medications. TRANSINT:[id number] Voice Confirmation ID: [id number] DOCUMENT ID: [id number] FRANKY NOWAK MD at 1111 CC: [id number] DICTATION DATE: 04/29/16 1200 MORTGAGE BRANCH MANAGER: 04/29/16 1226 DIS IN 04/30/16 [place] [id number] [place] [id number]
== END 2016-04-30 18:05 | DRG 249 ==
LOC: OBSVTIME → D.ER 14:31 → D.M2 18:41 → D.ER 18:41 → D.M2 18:41 → OBSVTIME 18:41 → EDSTATUS 04-22 08:30 → D.M2 04-22 16:20 → D.OPS 04-22 16:29 → D.M2 04-22 16:29
PROVIDERS: Emergency Medicine; Family Medicine Adult Medicine; Internal Medicine Hematology & Oncology; ADMIT Internal Medicine Interventional Cardiology
PROC: B211YZZ Fluoroscopy of Multiple Coronary Arteries using Other Contrast (ICD-10-PCS; 2016-04-22)
PROC: B215YZZ Fluoroscopy of Left Heart using Other Contrast (ICD-10-PCS; 2016-04-22)
PROC: 02703DZ Dilation of Coronary Artery, One Artery with Intraluminal Device, Percutaneous Approach (ICD-10-PCS; principal; 2016-04-22 08:30)
PROC: 4A023N7 Measurement of Cardiac Sampling and Pressure, Left Heart, Percutaneous Approach (ICD-10-PCS; 2016-04-22 08:30)
DX: I25.119 Atherosclerotic heart disease of native coronary artery with unspecified angina pectoris (principal); I69.354 Hemiplegia and hemiparesis following cerebral infarction affecting left non-dominant side; I48.91 Unspecified atrial fibrillation; E11.9 Type 2 diabetes mellitus without complications; I10 Essential (primary) hypertension; I50.9 Heart failure, unspecified; Z99.3 Dependence on wheelchair

== ENCOUNTER → 2016-05-05 13:46 | Outpatient (CLI) | payer MEDICARE ==
[2016-04-24 11:18] VITALS: BMI 34.8
[~2016-05-05 13:46] MED LIST changes: +ASPIRIN81 MG PO; +MILK OF MAGNESI30 ML PO; +MULTIPLE VITAMI1 TA1 PO; +MYLANTA / MAALO30 ML PO; +PLAVIX75 MG PO; +PREPARATION H S48 EA RC
== END | disposition home or self-care (01) ==
LOC: D.RAD 13:45
DX: M25.562 Pain in left knee (principal); M25.572 Pain in left ankle and joints of left foot

== ENCOUNTER 2016-06-02 21:39 | Outpatient (CLI) | payer MEDICARE ==
[~2016-06-02] VITALS: Ht 170.2 cm; Wt 95.5 kg
[2016-06-02 21:21] LABS: BASOPHILS 0.4 % (0.0-2.0); EOSINOPHILS 3.8 % (0-7); HEMATOCRIT 23.7 % (36.0-48.0); IMMATURE GRANULOCYTES 0.3 % (0-5); MCH 26.8 pg (26.0-34.0); MCHC 31.2 g/dL (31.0-37.0); MCV 85.9 fL (80.0-100.0); MEAN PLATELET VOLUME 10.3 fL (7.4-10.4); MONOCYTES 8.1 % (2-11); NEUTROPHILS 67.4 % (40-80); PLATELET COUNT 296 10x3/uL (130-400); RBC 2.76 10x6/uL (4.00-5.40); RDW 17.3 % (11.5-14.5); WBC 12.8 10x3/uL (4.8-10.8)
[2016-06-02 21:27] LABS: HEMOGLOBIN 7.4 g/dL (12-16)
[~2016-06-02 21:39] MED LIST changes: -MILK OF MAGNESI30 ML PO; -MULTIPLE VITAMI1 TA1 PO; -MYLANTA / MAALO30 ML PO; -PREPARATION H S48 EA RC
[2016-06-02 22:03] LABS: APTT 31.1 SECONDS (22.8-39.4); INR 1.11 (0.85-1.17); PROTIME 14.2 SECONDS (11.6-15.0)
--- NOTE | 2016-06-02 22:45 | NUR ---
RECEIVED PT FROM ER TO ROOM 2132 VIA STRETCHER DX ANEMIA PT DENIES FEELING BAD AAOX4 RESP UNLABORED SKIN W/D DENIES ANY NEEDS OR DISCOMFORT AT THIS TIME
[2016-06-02 22:55] VITALS: BP 135/67; Ht 170.2 cm; Wt 95.5 kg
--- NOTE | 2016-06-02 23:35 | NUR ---
INFUSION OF #1 UNIT PRBCS STARTED PT TOLERATING WELL INFUSING PER PUMP TO RT HAND 20 GA IV ACCESS WITHOUT DIFFICULTY NO REDNESS OR EDEMA NOTED TO SITE
[2016-06-03] MEDS ORDERED: MULTIPLE VITAMI1 TA1 PO (00:05)
[2016-06-03] MEDS ORDERED: PREPARATION H S48 EA RC (00:07)
[2016-06-03] MEDS ORDERED: MILK OF MAGNESI30 ML PO (00:08)
[2016-06-03] MEDS ORDERED: MYLANTA / MAALO30 ML PO (00:08)
[2016-06-03 00:21] VITALS: BP 147/79
--- NOTE | 2016-06-03 02:00 | NUR ---
PRBCs INFUSION COMPLE FOR #1 UNIT NO SIGNS OR SYMPTOMS OF REACTION PT TOLERATED WELL
--- NOTE | 2016-06-03 02:20 | NUR ---
INFUSION OF #2 UNIT OF PRBCs STARTED AT THIS TIME NAD NOTED
[2016-06-03 06:45] LABS: BASOPHILS 0.6 % (0.0-2.0); EOSINOPHILS 4.1 % (0-7); IMMATURE GRANULOCYTES 0.4 % (0-5); LYMPHOCYTES 19.2 % (15-50); MCH 27.4 pg (26.0-34.0); MCHC 32.3 g/dL (31.0-37.0); MEAN PLATELET VOLUME 10.6 fL (7.4-10.4); MONOCYTES 8.1 % (2-11); NEUTROPHILS 67.6 % (40-80); PLATELET COUNT 262 10x3/uL (130-400); WBC 11.9 10x3/uL (4.8-10.8)
[2016-06-03 06:52] LABS: HEMATOCRIT 28.8 % (36.0-48.0); HEMOGLOBIN 9.3 g/dL (12-16); RBC 3.39 10x6/uL (4.00-5.40)
--- NOTE | 2016-06-03 08:23 | NUR ---
SITTING UP IN BED EATING BREAKFAST. WILL CONTINUE TO MONITOR.
[2016-06-03 08:40] VITALS: BP 161/75
[2016-06-03 12:25] VITALS: BP 158/87
[2016-06-03 15:28] VITALS: BP 162/88
--- NOTE | 2016-06-03 15:34 | NUR ---
SPOKE WITH TAWANA WITH [facility] VIA PHONE REGARDING DISCHARGE TRANSPORTATION TODAY. VAN TRANSPORTATION WILL BE PROVIDED BETWEEN 4:30-5:00 PM TODAY. REPORT TO BE CALLED TO TAWANA @ [phone].
--- NOTE | 2016-06-03 15:52 | NUR ---
Patient Name: ARLYN JACOME Admission Status: ER Accout number: [id number] Admission Date: 06-02-2016 : 1950 Admission Diagnosis: Attending: Nalini Garza Current LOS: 1 Anticipated DC Date: 06-03-2016 Planned Disposition: Half-Way Facility Primary [facility] Discharge Planning Comments: * Is the patient Alert and Oriented? Yes 0 * How many steps to enter\exit or inside your home? NONE 0 * PCP DR. KLEIN 0 * Pharmacy [facility] 0 * Preadmission Environment [facility] 0 * [facility] * ADLs Partial Dependent 0 * Partial ADLs (Assistance needed) Ambulation Bathing Medication Management Transfers 0 * Equipment Other 0 * Other Equipment ALL EQUIPMENT PROVIDED BY [facility] 0 * List name and contact numbers for known caregivers / representatives who currently or will assist patient after discharge: [facility], [facility] * Community resources currently utilized None 0 * Please name any agencies selected above. NONE 0 * Additional services required to return to the preadmission environment? No 0 * Can the patient safely return to the preadmission environment? Yes 0 * Has this patient been hospitalized within the prior 30 days at any hospital? No 0 CM RECEIVED DISCHARGE ORDER, SPOKE TO SECONDS INSPECTOR WHO REPORTS SHE HAS CALLED [facility] [place] TO CASH REGISTER MECHANIC PT TODAY BETWEEN 4:30 PM AND 5:00 PM. CM MET WITH PT IN ROOM WHO REPORTS SHE IS STILL IN REHAB AT [facility], IS GETTING GOOD CARE AND SERVICE THERE AND WILL RETURN TO REHAB TODAY. CM OFFERED TO CONTACT FAMILY / FRIENDS FOR PT, PT DECLINED AND REPORTS CALLING EVERYONE ALREADY. PT DENIES DISCHARGE NEEDS, REPORTS ABILITY TO SIT FOR DURATION OF VAN TRANSPORTATION. CM FAXED DISCHARGE INFORMATION TO [facility] AT [phone]. NURSE REPORT TO BE CALLED TO [facility] AT [phone]. VAN TO CASH REGISTER MECHANIC PT BETWEEN 4:40 AND 5:00PM TODAY. [employer]el Technology Instructor: Sedrick Curran
--- NOTE | 2016-06-03 16:28 | NUR ---
REPORT CALLED TO RHONDA RINCON.
== END 2016-06-03 19:33 | disposition home or self-care (01) ==
LOC: D.ER → OBSVTIME → D.OPS 21:39 → D.M2 21:39 → D.ER 21:39 → D.M2 21:39 → D.OPS 06-03 19:33 → D.M2 06-03 19:33
PROVIDERS: Emergency Medicine; Physician Assistant Medical
DX: D64.9 Anemia, unspecified (principal); E11.9 Type 2 diabetes mellitus without complications; I25.10 Atherosclerotic heart disease of native coronary artery without angina pectoris; I10 Essential (primary) hypertension; E78.5 Hyperlipidemia, unspecified; I50.9 Heart failure, unspecified; I69.319 Unspecified symptoms and signs involving cognitive functions following cerebral infarction; K21.9 Gastro-esophageal reflux disease without esophagitis; M54.5 Low back pain; M10.9 Gout, unspecified

== ENCOUNTER → 2016-08-06 19:11 | Outpatient (CLI) | payer MEDICARE ==
[2016-06-02 22:55] VITALS: BMI 32.9
[~2016-08-06 19:11] MED LIST changes: +MILK OF MAGNESI30 ML PO; +MULTIPLE VITAMI1 TA1 PO; +MYLANTA / MAALO30 ML PO; +PREPARATION H S48 EA RC
[2016-08-06 19:39] LABS: INR 2.12 (0.85-1.17); PROTIME 23.8 SECONDS (11.6-15.0)
== END | disposition home or self-care (01) ==
LOC: D.LABREF 19:11
PROVIDERS: Family Medicine
DX: Z51.81 Encounter for therapeutic drug level monitoring (principal); Z79.01 Long term (current) use of anticoagulants

== ENCOUNTER 2016-12-12 17:54 | Emergency (ER) | payer MEDICARE ==
[2016-06-02 22:55] VITALS: BMI 32.9
[2016-12-12 18:38] LABS: BASOPHILS 0.4 % (0-2); EOSINOPHILS 3.8 % (0-7); HEMOGLOBIN 8.2 g/dL (12-16); IMMATURE GRANULOCYTES 0.2 % (0-5); MCHC 32.8 g/dL (31.0-37.0); MCV 85.3 fL (80.0-100.0); MEAN PLATELET VOLUME 10.2 fL (7.4-10.4); MONOCYTES 8.1 % (2-11); NEUTROPHILS 68.5 % (40-80); PLATELET COUNT 375 10x3/uL (130-400); RBC 2.93 10x6/uL (4.00-5.40); RDW 14.6 % (11.5-14.5); WBC 11.5 10x3/uL (4.8-10.8)
[2016-12-12 18:53] LABS: ALBUMIN 2.7 g/dL (3.4-5.0); ALKALINE PHOSPHATASE 130 U/L (46-116); ALT (SGPT) 12 U/L (10-68); CALC OSMOLALITY 283 mosm/kg (275-300); CALCIUM 8.7 mg/dL (8.5-10.1); CARBON DIOXIDE 24.3 mmol/L (21.0-32.0); CHLORIDE - SERUM 105 mmol/L (98-107); CREATININE - SERUM 1.3 mg/dL (0.6-1.3); POTASSIUM - SERUM 3.3 mmol/L (3.5-5.1); PROTEIN - SERUM 7.9 g/dL (6.4-8.2); SODIUM 139 mmol/L (136-145); UREA NITROGEN 29 mg/dL (7-18); eGFR NON AFRICAN AMERICAN 43 mL/min (90-120)
[2016-12-12 18:56] LABS: GLUCOSE 95 mg/dL (74-106)
[2016-12-12 19:04] LABS: CHOL - HDL RATIO 2.9 ratio (2.3-4.1); CHOLESTEROL, TOTAL 113 mg/dL (0-200); CKMB 0.2 U/L (0.0-3.6); CREATINE KINASE 35 UL (21-215); HDL CHOLESTEROL 39 mg/dL (32-96); LDL CHOLESTEROL 52 mg/dL (0-100); LDL-HDL RATIO 1.3 ratio (1.5-3.5); TRIGLYCERIDE 114 mg/dL (30-200); TROPONIN-I < 0.017 ng/mL (0.000-0.060)
== END 2016-12-12 23:18 | disposition home or self-care (01) ==
LOC: D.ER 17:54
PROVIDERS: Emergency Medicine
DX: K21.9 Gastro-esophageal reflux disease without esophagitis (principal); R07.89 Other chest pain; E11.9 Type 2 diabetes mellitus without complications; Z79.4 Long term (current) use of insulin; I10 Essential (primary) hypertension

== ENCOUNTER 2017-03-02 12:01 | Outpatient (CLI) | payer MEDICARE ==
[~2017-03-02] VITALS: Ht 170.2 cm; Wt 70.9 kg
--- NOTE | ~2017-03-02 | HEMODYNAMI ---
PATIENT:ARLYN JACOME MEDICAL RECORD: [id number] : 46 [facility] [facility] [id number] ADMISSION DATE: 03/02/17 Generatedon:03/03/201713:19 Patient name: ARLYN JACOME Patient #: [id number] SSN: [id number] : 1950 Date of study: 03/03/2017 Page: Of Hemodynamic Procedure Report Patient Data Patient Demographics Procedure consent was obtained First Name: ARLYN Gender: Female Last Name: NAA : 1950 Middle Initial: J Age: 67 year(s) Patient #: [id number] Race: Black SSN: [id number] Additional ID: [id number] Contact details Address: [address] [place] [address] State: [place] City: [facility] Zip code: [address] Past Medical History Allergies Allergen Reaction Date Comments Reported Adhesive tape 04/22/2016 Codeine 04/22/2016 Iodine 04/22/2016 Other allergy 03/03/2017 CODEINE, IODINE, OMEPRAZOFE, LISINOPRIL, SILVER Admission Admission Data Admission Date: 03/02/2017 Admission Time: 14:55 Room #: D.2116 Lab Results Lab Result Date: 03/03/2017 Lab Result Time: 0:00 Biochemistry Name Units Result Min Max BUN mg/dl 22 --(----)-* 7 18 Creatinine mg/dl 1.1 --(--*-)-- 0.6 1.3 CBC Name Units Result Min Max Hemoglobin g/dl 8.7 *-(----)-- 13.5 17.5 Procedure Procedure Types Cath Procedure Diagnostic Procedure LHC LH w/Coronaries PCI Procedure Coronary Stent Coronary Stent Initial Miscellaneous Procedures Moderate Sedation up to 15 minutes Procedure Description Procedure Date Procedure Date: 03/03/2017 Procedure Start Time: 12:57 Procedure End Time: 13:12 Procedure Staff Name Function Royal Atkinson RT Monitor Katarina Worrell RT Scrub Kendell Figueredo RN Nurse Spencer Seo MD Performing Physician Procedure Data Cath Procedure Fluoroscopy Diagnostic fluoroscopy Total fluoroscopy Time: 2 time: 2 min min Diagnostic fluoroscopy Total fluoroscopy dose: dose: 121.82 mGy 121.82 mGy Contrast Material Contrast Material Type Amount (ml) Isovue 300 66 Entry Location Entry Primary Successful Side Size Upsize Upsize Entry Closure Succes sful Closure Location (Fr) 1 (Fr) 2 (Fr) Remarks Device Remarks Femoral Right 5 Fr 6 Fr Exoseal artery Short Estimated blood loss: 5 ml Diagnostic catheters Device Type Used For End Catheter Placement Cordis 5Fr Pigtail Procedure Catheter (MP) Cordis 5Fr JL 4.0 Procedure Catheter (MP) Cordis 5Fr 3DRC Catheter Procedure (MP) Procedure Medications Medication Administration Route Dosage Oxygen NC 2 l/min Benadryl I.V. 50 mg Versed I.V. 1 mg Fentanyl I.V. 50 mcg Heparin Bolus I.V. 4000 units Versed I.V. 0.5 mg Fentanyl I.V. 25 mcg Hemodynamics Rest HGB: 8.7 (g/dl) Heart Rate: 73 (bpm) Snapshots Pre Cath Intra NCS Post Cath Vital Signs Time Heart Resp SPO2 etCO2 NIBP (mmHg) Rhythm Pain Sedation Rate (ipm) (%) (mmHg) Status Level (bpm) 12:44:49 88 15 98 35.3 Measuring NSR 0 (11) 10(A) , No pain 12:45:03 83 20 98 34.5 176/99(154) NSR 0 (11) 10(A) , No pain 12:49:46 70 24 97 33.8 153/88(137) NSR 0 (11) 10(A) , No pain 12:54:18 74 28 97 34.5 169/97(145) NSR 0 (11) 10(A) , No pain 12:59:01 77 18 94 35.2 163/92(139) NSR 0 (11) 9(A) , No pain 13:03:39 74 16 100 15 155/88(132) NSR 0 (11) 9(A) , No pain 13:08:14 75 15 100 33 151/88(132) NSR 0 (11) 10(A) , No pain 13:12:46 74 14 100 31.5 164/88(138) NSR 0 (11) 10(A) , No pain Medications Time Medication Route Dose Verified Delivered Reason Notes Effe ctiveness by by 12:53:30 Oxygen NC 2 Spencer Buffie used for l/min Rayray Figueredo RN procedure 12:53:37 Benadryl I.V. 50 mg Spencer Carreraie used for Rayray Figueredo RN procedure 12:57:27 Versed I.V. 1 mg Spencer Buffie for sedation Rayray Figueredo RN 12:57:33 Fentanyl I.V. 50 Spencer Buffie for sedation mcg Rayray Figueredo RN 13:00:57 Heparin I.V. 4000 Spencer Carreraie for Bolus units Rayray Figueredo RN anticoagulation 13:02:01 Versed I.V. 0.5 Spencer Buffie for sedation mg Rayray Figueredo RN 13:02:05 Fentanyl I.V. 25 Spencer Buffie for sedation mcg Rayray Figueredo RN Procedure Log Time Note 12:10:39 Informed consent obtained and on chart 12:10:42 Diagnostic Cath Status : Elective 12:10:57 Katarina Worrell RT(R) sent for patient. Start room use. 12:10:58 Time tracking: Regular hours 12:11:03 Plan of Care:Hemodynamics will remain stable., Cardiac rhythm will remain stable., Comfort level will be maintained., Respiratory function will remain adequate., Patient/ family verbilizes understanding of procedure., Procedure tolerated without complication., Recovers from procedure without complications.. 12:25:31 Patient received from Med II to CCL 3 Alert and oriented. Tansferred to table in Supine position. 12:25:32 Correct patient and procedure confirmed by team. 12:25:32 Warm blankets applied, and omega hugger turned on for patient comfort. 12:25:34 ECG and BP/O2 sat monitors applied to patient. 12:42:59 Vital chart was started 12:43:01 Baseline sample Acquired. 12:44:03 Rhythm: sinus rhythm 12:44:05 Full Disclosure recording started 12:46:54 H&P Date Dictated: 03/02/2017 Within 30 days and on chart.. 12:47:00 Pre-op teaching completed and patient verbalized understanding. 12:47:00 Pre-procedure instructions explained to patient. 12:47:02 Family unavailable. 12:47:07 Patient NPO since Midnight. 12:48:00 Patient allergic to Other allergyCODEINE, IODINE, OMEPRAZOFE, LISINOPRIL, SILVER 12:48:09 Is the patient allergic to Iodine/contrast media? Yes. 12:48:11 Was the patient premedicated? Yes 12:48:34 Is patient on blood thinner?Yes 12:48:38 ACC The patient was administered the following blood thiners within the last 24 hours: ACCPlavix 12:48:41 Patient diabetic? Yes. 12:48:43 If diabetic: On Metformin? No 12:48:49 Patient not . Patient is over age 55. 12:48:50 ----Pre-sedation anethsthesia assessment.---- 12:48:53 Previous problem with sedation/anesthesia? No ? 12:48:55 Snore? Yes 12:48:57 Sleep apnea? Yes 12:48:58 Deviated septum? No 12:48:59 Opens mouth fully? Yes 12:49:00 Sticks out tongue? Yes 12:49:07 Airway obstruction? No ? 12:49:17 Dentures? No ? 12:49:23 Pre procedure: right dorsailis pedis pulse 1+ Palpable, but thready & weak; easily obliterated 12:49:29 Patient pain scale 0/10 ?. 12:50:03 IV started by Kendell Figueredo RN inright forearm with a 22 gauge IV catheter with 0.9% NaCl at KVO. 12:50:26 Lab Result : Hemoglobin 8.7 g/dl 12:50:26 Lab Result : Creatinine 1.1 mg/dl 12:50:26 Lab Result : BUN 22 mg/dl 12:50:41 DR. SEO IS AWARE OF LABS 12:50:48 Lab results completed and on chart. 12:50:53 Right groin area was prepped with chlora-prep and draped in sterile fashion 12:50:55 Alarms reviewed by R. N. 12:50:56 Sharps counted by scrub and verified by R.N. 12:53:30 Oxygen 2 l/min NC was administered by Kendell Figueredo RN; used for procedure; 12:53:37 Benadryl 50 mg I.V. was administered by Kendell Figueredo RN; used for procedure; 12:54:19 Zero performed for pressure channel P1 12:54:24 Zero performed for pressure channel P1 12:54:26 Zero performed for pressure channel P1 12:54:43 Use device set Femoral Dx 12:54:44 Acist Syringe opened to sterile field. 12:54:45 Medline Cath Pack opened to sterile field. 12:54:45 Bag Decanter opened to sterile field. 12:54:47 St Ravi 260cm J .035 wire opened to sterile field. 12:54:47 Terumo 5Fr [place] Sheath opened to sterile field. 12:54:48 Acist Hand Control opened to sterile field. 12:54:49 Acist Manifold opened to sterile field. 12:54:50 Diagnostic Infinity 5Fr Multipack catheter opened to sterile field. 12:54:51 Tegaderm 4 x 4 opened to sterile field. 12:56:27 Final Timeout: patient, procedure, and site verified with staff and physician. All members of the team are in agreement. 12:56:27 --------ALL STOP TIME OUT------ 12:56:27 Physician arrived 12:56:29 Right groin site verified by team. 12:56:33 Physical assessment completed. ASA score P 2 - A patient with mild systemic disease as per Spencer Seo MD. 12:56:36 Sedation plan: IV Moderate Sedation Medication:Versed, Fentanyl 12:57:01 Procedure started. 12:57:08 Local anesthetic to right femoral artery with Lidocaine 2% by Spencer Seo MD.INITIAL ACCESS ONLY 12:57:10 A 5 Fr sheath was inserted into the Right Femoral artery 12:57:16 A Cordis 5Fr Pigtail Catheter (MP) was advanced over the wire and used for Procedure. 12:57:27 LV hemodynamics recorded. 12:57:27 Versed 1 mg I.V. was administered by Kendell Figueredo RN; for sedation; 12:57:30 LV gram done using GONZALEZ 12:57:33 Fentanyl 50 mcg I.V. was administered by Kendell Figueredo RN; for sedation; 12:57:40 EF : 60 % 12:57:43 Catheter removed. 12:58:42 A Cordis 5Fr JL 4.0 Catheter (MP) was advanced over the wire and used for Procedure. 12:58:45 LCA angiography performed. 12:59:20 Catheter removed. 12:59:28 A Cordis 5Fr 3DRC Catheter (MP) was advanced over the wire and used for Procedure. 12:59:42 RCA angiography performed. 12:59:54 Catheter removed. 12:59:58 Proceeding to intervention. 13:00:52 Simms Whisper J 300cm 0.014 guide wire opened to sterile field. 13:00:53 Terumo 6Fr [place] Sheath opened to sterile field. 13:00:55 Domgeo.ru BasixCompak Inflation Kit opened to sterile field. 13:00:57 Heparin Bolus 4000 units I.V. was administered by Kendell Figueredo RN; for anticoagulation; 13:01:03 Cordis 6FR XBLAD 3.5 guide catheter opened to sterile field. 13:02:01 Versed 0.5 mg I.V. was administered by Kendell Figueredo RN; for sedation; 13:02:05 Fentanyl 25 mcg I.V. was administered by Kendell Figueredo RN; for sedation; 13:02:40 Sheath upsized to a 6 Fr Short. 13:02:59 6 Fr XBLAD 3.5 guide catheter was inserted over the wire 13:03:09 WHISPER wire advanced. 13:03:11 Wire advanced across lesion. 13:04:03 Inflation Number: 1 A Bridgeton OTW 2.5 x 18 stent was prepped and advanced across the Mid LAD. The stent was deployed at 19 JOEY for 0:10 (min:sec). 13:04:07 Stent catheter was removed intact over wire. 13:04:08 Guide catheter removed. 13:04:08 Wire removed. 13:06:10 Cordis 6Fr Exoseal opened to sterile field. 13:06:20 Sheath removed intact; hemostasis achieved with Exoseal to the Right Femoral artery. 13:06:22 Procedure ended.(Physican Out) 13:06:28 Fluoroscopy time 02.00 minutes. 13:06:35 Fluoroscopy dose: 121.82 mGy 13:06:35 Flurop Dose total: 121.82 13:06:42 Contrast amount:Isovue 300 66ml. 13:06:44 Sharps counted by scrub and verified by R.N. 13:07:59 Procedure type changed to Cath procedure, Diagnostic procedure, LHC, LHC w/Coronaries, PCI procedure, Coronary Stent, Coronary Stent Initial, Miscellaneous Procedures, Moderate Sedation up to 15 minutes 13:09:35 Insertion/operative site no bleeding no hematoma. 13:09:38 Post-op/insertion site Right Femoral artery dressed using a 4 x 4 and Tegaderm. 13:09:44 Post right femoral artery:stable 13:12:02 Post Procedure Pulses reassessed and unchanged 13:12:09 Post-procedure physical assessment completed. ASA score P 2 - A patient with mild systemic disease as per Spencer Seo MD. 13:12:15 Post procedure rhythm: unchanged. 13:12:19 Estimated blood loss: 5 ml 13:12:21 Post procedure instruction explained to patient.Patient verbalizes understanding. 13:12:22 Patient needs reinforcement of post procedure teaching. 13:12:23 Procedure and supply charges have been captured, reviewed, submitted and are correct. 13:12:27 Vital chart was stopped 13:12:28 See physician's report for complete and final results. 13:12:38 Report given to PCU. 13:12:43 Patient transfered to PCU with Bed. 13:12:46 Full Disclosure recording stopped 13:12:46 Procedure ended. 13:12:49 End room use (Document Last) Intervention Summary Intervention Notes Time ActionType Lesion and Equipment Action# Pressure Duration Attributes Used 13:04:03 Place stent Mid LAD Bridgeton OTW 1 19 00:10 2.5 x 18 stent Device Usage Item Name Manufacture Quantity Catalog Hospital Part Current Minimal Lot# / Number Charge Number Stock Stock Serial# Code Acist Acist 1 96422 838662 729490 243708 20 Syringe Medical Systems Inc Bag Microtek 1 2002S 729853 17438 238575 5 DecThe Daily Voice [employer] Inc. Medline Cardinal 1 [id number] 939156 45416 762105 5 Cath Pack Health Terumo 5Fr Terumo 1 [id number] 951315 397840 211485 [address] Ravi 1 102995 895464 668024 525782 30 260cm J .035 wire Acist Hand Acist 1 35365 946154 309752 175181 5 Control Medical Systems Inc Acist Acist 1 28906 243611 476590 624946 5 Manifold Medical Systems Inc Diagnostic Cardinal 1 [id number] 523017 48930 538599 30 Zen99ity Health 5Fr Multipack catheter Tegaderm 4 3M 1 1626W 225603 734005 457757 5 x 4 Cordis 5Fr Cardinal 1 [id number] 5 Pigtail Health Catheter (MP) Cordis 5Fr Cardinal 1 603091 5 JL 4.0 Health Catheter (MP) Cordis 5Fr Cardinal 1 560774 5 3DRC Health Catheter (MP) Simms Simms 1 [id number] 380060 320413 716025 5 Whisper J Vascular 300cm 0.014 guide wire Terumo 6Fr Terumo 1 [id number] 126252 079478 213307 40 [place] Sheath Merit Merit 1 AD0287 936974 891571 363208 15 UpRace Medical Inflation Kit Cordis 6FR Cardinal 1 [id number] 147381 018984 810608 10 XBLAD 3.5 Health guide catheter Bridgeton OTW Medtronic 1 [id number] 599602 24270 328938 5 [id number] 2.5 x 18 stent Cordis 6Fr Cardinal 1 EX600 049884 842189 996687 10 [facility] Thoof Signature Audit [place] Stage Time Signature Unsigned Intra-Procedure 03/03/2017 Royal Atkinson 1:16:43 PM RT(R) (CV) Signatures Monitor : Royal Atkinson RT Signature : Date : Time : [place] [id number] [place] [address]
[2017-03-02 12:48] LABS: BASOPHILS 0.3 % (0-2); EOSINOPHILS 3.8 % (0-7); HEMATOCRIT 27.7 % (36.0-48.0); HEMOGLOBIN 8.8 g/dL (12-16); IMMATURE GRANULOCYTES 0.1 % (0-5); LYMPHOCYTES 20.6 % (15-50); MCH 25.4 pg (26.0-34.0); MCHC 31.8 g/dL (31.0-37.0); MCV 80.1 fL (80.0-100.0); MEAN PLATELET VOLUME 10.8 fL (7.4-10.4); MONOCYTES 7.3 % (2-11); NEUTROPHILS 67.9 % (40-80); PLATELET COUNT 315 10x3/uL (130-400); RBC 3.46 10x6/uL (4.00-5.40); RDW 15.7 % (11.5-14.5); WBC 9.2 10x3/uL (4.8-10.8)
[2017-03-02 13:02] LABS: ALBUMIN 2.9 g/dL (3.4-5.0); ALKALINE PHOSPHATASE 177 U/L (46-116); ALT (SGPT) 13 U/L (10-68); CALCIUM 8.9 mg/dL (8.5-10.1); CARBON DIOXIDE 26.8 mmol/L (21.0-32.0); CHLORIDE - SERUM 105 mmol/L (98-107); CREATININE - SERUM 1.2 mg/dL (0.6-1.3); POTASSIUM - SERUM 3.9 mmol/L (3.5-5.1); PROTEIN - SERUM 8.1 g/dL (6.4-8.2); SODIUM 141 mmol/L (136-145); UREA NITROGEN 25 mg/dL (7-18); eGFR NON AFRICAN AMERICAN 47 mL/min (90-120)
[2017-03-02 13:04] LABS: BILIRUBIN - TOTAL 0.08 mg/dL (0.2-1.3); CALC OSMOLALITY 293 mosm/kg (275-300); GLUCOSE 256 mg/dL (74-106)
[2017-03-02 13:12] LABS: CHOL - HDL RATIO 2.5 ratio (2.3-4.1); CHOLESTEROL, TOTAL 119 mg/dL (0-200); CKMB 0.7 U/L (0.0-3.6); CREATINE KINASE 118 UL (21-215); HDL CHOLESTEROL 48 mg/dL (32-96); LDL CHOLESTEROL 55 mg/dL (0-100); LDL-HDL RATIO 1.1 ratio (1.5-3.5); TRIGLYCERIDE 83 mg/dL (30-200)
[2017-03-02 13:13] LABS: TROPONIN-I < 0.017 ng/mL (0.000-0.060)
[2017-03-02 15:32] LABS: CREATINE KINASE 89 UL (21-215); TROPONIN-I < 0.017 ng/mL (0.000-0.060)
[2017-03-02 16:52] VITALS: BP 181/91
[2017-03-02] MEDS ORDERED: NEURONTIN600 MG PO (16:53)
[2017-03-02] MEDS ORDERED: LIPITOR20 MG PO (16:54)
[2017-03-02] MEDS ORDERED: ULTRAM50 MG PO (16:55)
--- NOTE | 2017-03-02 18:23 | NUR ---
NITRO AND PREDNISONE NO AVAIABLE TO GIVE. MISTI IN PHARMACY NOTEFIED
[2017-03-02 19:01] VITALS: Ht 170.2 cm; Wt 70.9 kg
--- NOTE | 2017-03-02 19:19 | NUR ---
ASSESSMENT COMPLETE NAD NOTED
[2017-03-02 21:25] LABS: CKMB 0.2 U/L (0.0-3.6); CREATINE KINASE 75 UL (21-215); TROPONIN-I < 0.017 ng/mL (0.000-0.060)
--- NOTE | 2017-03-02 21:44 | NUR ---
HS MEDS GIVEN WITH FRESH ICE WATER, BS 218, DISCUSSED WITH PT AND MICHELLE HELD DUE TO PT BEING NPO AFTER MN FOR A CARDIAC CATH IN THE AM. NORCO 1 TAB GIVEN FOR C/O PAIN TO HEAD AND NECK, RATES PAIN AT A 7 ON PAIN SCALE.
[2017-03-02 22:54] VITALS: BP 233/113
--- NOTE | 2017-03-03 | NUR ---
RES COUNSELOR AT BED SIDE TO OBTAIN VITALS, WILL CONT TO MONITOR.
--- NOTE | 2017-03-03 02:57 | NUR ---
RESTING WITH EYES CLOSED, RESPERATIONS EVEN, NO S/S DISTRESS NOTED.
[2017-03-03 03:36] LABS: BASOPHILS 0.2 % (0-2); EOSINOPHILS 0 % (0-7); HEMATOCRIT 27.9 % (36.0-48.0); HEMOGLOBIN 8.7 g/dL (12-16); LYMPHOCYTES 15.5 % (15-50); MCH 24.9 pg (26.0-34.0); MCHC 31.2 g/dL (31.0-37.0); MCV 79.7 fL (80.0-100.0); MEAN PLATELET VOLUME 11.1 fL (7.4-10.4); MONOCYTES 0.3 % (2-11); PLATELET COUNT 322 10x3/uL (130-400); RDW 15.4 % (11.5-14.5)
[2017-03-03 03:38] LABS: WBC 5.7 10x3/uL (4.8-10.8)
--- NOTE | 2017-03-03 03:44 | NUR ---
BLEACHER LARD AT BED SIDE, HIBICLENSE BATH AND LINEN CHANGE COMPLETE. REPOSTIONED IN BED FOR COMFORT.
[2017-03-03 04:15] LABS: CALCIUM 8.6 mg/dL (8.5-10.1); CARBON DIOXIDE 24.6 mmol/L (21.0-32.0); CHLORIDE - SERUM 105 mmol/L (98-107); CKMB 0.2 U/L (0.0-3.6); CREATINE KINASE 66 UL (21-215); CREATININE - SERUM 1.1 mg/dL (0.6-1.3); POTASSIUM - SERUM 4.1 mmol/L (3.5-5.1); SODIUM 139 mmol/L (136-145); UREA NITROGEN 22 mg/dL (7-18); eGFR NON AFRICAN AMERICAN 52 mL/min (90-120)
[2017-03-03 04:16] LABS: CALC OSMOLALITY 293 mosm/kg (275-300); GLUCOSE 338 mg/dL (74-106); TROPONIN-I < 0.017 ng/mL (0.000-0.060)
[2017-03-03 04:27] VITALS: BP 169/81
[2017-03-03 07:52] VITALS: BP 184/96
[2017-03-03 11:59] VITALS: BP 159/84
--- NOTE | 2017-03-03 12:19 | NUR ---
LEAVING BY BED TO MANAGER DATA.
--- NOTE | 2017-03-03 13:34 | NUR ---
BACK FROM TEACHING FELLOW. VS WNL. RIGHT GROIN STABLE WITHOUT BLEEDING OR HEMATOMA NOTED. WILL MONITOR.
[2017-03-03] MEDS ORDERED: PLAVIX75 MG PO (15:34)
[2017-03-03] MEDS ORDERED: ASPIRIN81 MG PO (15:34)
--- NOTE | 2017-03-03 17:14 | NUR ---
BED REST UP. GROIN STABLE. IV AND TELEMETRY DCD. WILL MONITOR.
--- NOTE | 2017-03-03 19:26 | NUR ---
SPOKE WITH PTS DAUGHTER, DAUGHTER STATED THAT SHE IS ON HER WAY, WILL LET PT KNOW THAT DAUGHTER IS ON HER WAY.
--- NOTE | 2017-03-05 14:14 | DS ---
PATIENT:ARLYN CHAWLA :46 MEDICAL RECORD: [id number] DISCHARGE SUMMARY ADMISSION DATE: 03/02/17 DISCHARGE DATE: 03/03/17 DISCHARGE DIAGNOSES: 1. Unstable angina. 2. Coronary artery disease. 3. Hypertension. 4. Hyperlipidemia. HOSPITAL COURSE: Mrs. Chawla presents with unstable anginal symptomatology, found to have single vessel disease of the LAD, underwent successful PTCA stent of the LAD. Discharged home. Continue her current medications as she is already on aspirin and Plavix. She will follow up with [facility] in 1 month. TRANSINT:[id number] Voice Confirmation ID: [id number] DOCUMENT ID: [id number] FRANKY NOWAK MD at 1414 CC: [id number] DICTATION DATE: 03/03/17 1308 MANAGER PHOTOGRAPHY: 03/03/171914 DEP CLI 03/03/17 [facility] [address] [place] [address]
--- NOTE | 2017-03-05 14:14 | OP ---
PATIENT NAME: ARLYN JACOME MEDICAL RECORD: [id number] :46 LOCATION:[facility] ADMISSION DATE: SURGEON: FRANKY NOWAK MD DATE OF OPERATION: 03/03/2017 PROCEDURES: 1. PTCA stent to LAD. 2. Left heart catheterization. 3. Selective coronary angiography. 4. Left ventriculogram. INDICATION: Unstable angina. PROCEDURE IN DETAIL: After informed consent was obtained and after detailed explanation of risks, benefits as well as alternative therapies, the patient elected to proceed with angiogram and angioplasty. The right femoral area was prepped and draped in normal sterile fashion. The right femoral artery was cannulated via modified Seldinger technique with placement of a 6-Angolan sheath. All catheters exchanged through this sheath. FINDINGS: Left ventriculogram was performed in standard 30-degree GONZALEZ view, reveals good cardiac wall motion throughout all segments. Overall ejection fraction estimated 60%. SELECTIVE CORONARY ANGIOGRAPHY: 1. Left main showed no significant angiographic disease. 2. Left anterior descending has 80% stenosis in the mid vessel, otherwise only mild irregularities. 3. Left circumflex has moderate irregularities, but no flow-limiting stenosis. 4. Right coronary artery has moderate irregularities, but no flow-limiting stenosis. PTCA STENT OF THE LAD: The stent used is a 2.5 x 18 mm Dusty. Result was 0% residual stenosis. OVERALL IMPRESSION: Successful percutaneous transluminal coronary angioplasty stent of the left anterior descending going from 80% initial stenosis to 0% residual. TRANSINT:[id number] Voice Confirmation ID: [id number] DOCUMENT ID: [id number] FRANKY NOWAK MD at 1414 CC: [id number] DICTATION DATE: 03/03/17 1307 BASKET PERSON: 03/03/17 1314 DEP CLI 03/03/17 [place] [id number] [place] [id number]
--- NOTE | 2017-03-05 14:14 | HP ---
PATIENT: ARLYN CHAWLA MEDICAL RECORD: [id number] ACCOUNT: [id number] LOCATION:[facility] : 46 ADMISSION DATE: 03/02/17 HISTORY AND PHYSICAL EXAMINATION DIAGNOSES: 1. Unstable angina. 2. Coronary artery disease. 3. Previous percutaneous transluminal coronary angioplasty stent. 4. Anemia. 5. Hypertension. 6. Insulin-dependent diabetes. HISTORY OF PRESENT ILLNESS: Ms. Chawla presents with anginal symptomatology. Past history of coronary artery disease. Last stent was in April. Her chest pain has been there for the past 3 days, just like that of her previous anginal symptomatology prior to the stent. She does have a chronic anemia. Her hemoglobin is 8.8. She is on iron replacement therapy. This is not out of the ordinary for her. REVIEW OF SYSTEMS: The patient reports easy bruising but reports no swollen glands. The patient reports no fever, no night sweats, no significant weight gain, no significant weight loss. No significant exercise tolerance. The patient reports no dry eyes, no irritation, no vision change. Patient reports no difficulty hearing and no ear pain. Patient reports no frequent nose bleeds or nose and sinus problems. Patient reports on arm pain on exertion. No shortness of breath while lying down. No history of heart murmur. Patient reports no cough, no wheezing or coughing up blood. Patient reports no abdominal pain, no vomiting. Normal appetite. No diarrhea and not vomiting blood. No nausea and no constipation. Patient reports no incontinence. No difficulty urinating. No hematuria. No increased frequency. Patient reports no muscle aches. No weakness, no arthralgias, no back pain. No swelling of the extremities. Patient reports no abnormal mole, no jaundice, no rashes. Reports no loss of consciousness. No weakness and no numbness. No seizures, dizziness, or headaches. The patient reports no depression, no sleep disturbance, feeling safe in a relationship and no alcohol abuse. Patient reports on fatigue. Reports no runny nose or sinus pressure. No itching, no hives, and no frequent sneezing. PHYSICAL EXAMINATION: GENERAL APPEARANCE: Well-nourished, well-developed, appears stated age. Level of distress, comfortable. PSYCHIATRIC: Mental status, alert, normal affect. Orientation, oriented to time, place and person. EYES: Lids and conjunctiva, noninjected. No discharge, no pallor. ENT: Lips, teeth, gums, normal dentition. Oropharynx, no cyanosis, no pallor. NECK: Carotid arteries, bilateral normal upstroke, no bruits, no thrills. JUGULAR VEINS: No jugular venous pressure or distention. CERVICAL LYMPH NODES: Nontender, nonenlarged. THYROID: Not enlarged. Nontender. No nodules. LUNGS: Respiratory effort, unlabored. CHEST: Normal curvature. No thoracic deformity. No chest wall tenderness. Percussion, resonant. Auscultation, clear. No wheezes, no rales, no rhonchi. CARDIOVASCULAR: Precordial exam, nondisplaced. No heaves or pericardial thrills. Rate and rhythm, regular. Heart sounds, normal S1, normal S2. No S3, HISTORY AND PHYSICAL [id number] ARLYN CHAWLA no gallop, no rub. Systolic murmur, not heard. Diastolic murmur, not heard. EXTREMITIES: No cyanosis, no edema. Peripheral pulses, full and equal in all extremities, except as noted. No bruits appreciated. ABDOMEN: Soft, nondistended. Normal aorta. No bruit. Nontender. No masses. Liver, nontender, no hepatomegaly. Spleen, nontender, no splenomegaly. MUSCULOSKELETAL: No joint tenderness. No joint swelling. No erythema. NEUROLOGICAL: Normal gait, normal strength, normal tone. SKIN: Warm and dry. OVERALL IMPRESSION: Chest pain compatible with angina in an unstable fashion, most likely she does have recurrent hemodynamically significant coronary artery disease. We will proceed with coronary angiography. Further care depends upon findings of the angiography. TRANSINT:[id number] Voice Confirmation ID: [id number] DOCUMENT ID: [id number] FRANKY NOWAK MD at 1414 CC: [id number] DICTATION DATE: 03/02/17 1553 DROP PRESS HAND: 03/02/17 1606 [facility] CLI 03/03/17 [place] [id number] [place] [address]
== END 2017-03-03 19:40 | disposition home or self-care (01) ==
LOC: OBSVTIME → D.OPS 12:01 → D.ER 12:01 → D.M2 14:55 → D.SDCHOLD 14:55 → OBSVTIME 15:00 → EDSTATUS 03-03 11:45 → D.OPS 03-03 19:40 → D.M2 03-03 19:40
PROVIDERS: Family Medicine
DX: I25.110 Atherosclerotic heart disease of native coronary artery with unstable angina pectoris (principal); Z95.5 Presence of coronary angioplasty implant and graft; D53.9 Nutritional anemia, unspecified; I10 Essential (primary) hypertension; E11.9 Type 2 diabetes mellitus without complications; E78.5 Hyperlipidemia, unspecified; Z01.812 Encounter for preprocedural laboratory examination
CPT/HCPCS: 93458; C9600

== ENCOUNTER 2017-03-06 14:34 | Inpatient (IN) | payer MEDICARE ==
[~2017-03-06] VITALS: Ht 170.2 cm; Wt 95.5 kg
[~2017-03-06 14:34] MED LIST changes: +LIPITOR20 MG PO; +NEURONTIN600 MG PO; +ULTRAM50 MG PO
[2017-03-06 15:18] LABS: BASOPHILS 0.2 % (0-2); EOSINOPHILS 2.4 % (0-7); HEMATOCRIT 28.3 % (36.0-48.0); HEMOGLOBIN 8.8 g/dL (12-16); IMMATURE GRANULOCYTES 0.2 % (0-5); LYMPHOCYTES 21.1 % (15-50); MCH 24.9 pg (26.0-34.0); MCHC 31.1 g/dL (31.0-37.0); MCV 80.2 fL (80.0-100.0); MEAN PLATELET VOLUME 10.9 fL (7.4-10.4); MONOCYTES 6.6 % (2-11); NEUTROPHILS 69.5 % (40-80); PLATELET COUNT 292 10x3/uL (130-400); RBC 3.53 10x6/uL (4.00-5.40); RDW 15.7 % (11.5-14.5); WBC 11.1 10x3/uL (4.8-10.8)
[2017-03-06 15:30] LABS: APTT 27.3 SECONDS (22.8-39.4); INR 1.1 (0.85-1.17); PROTIME 14.1 SECONDS (11.6-15.0)
[2017-03-06 15:39] LABS: ALBUMIN 3.1 g/dL (3.4-5.0); ANION GAP 15.7 mmol/L (8-16); BILIRUBIN - TOTAL 0.26 mg/dL (0.2-1.3); CALCIUM 9.1 mg/dL (8.5-10.1); CARBON DIOXIDE 23.9 mmol/L (21.0-32.0); CREATININE - SERUM 1.1 mg/dL (0.6-1.3); POTASSIUM - SERUM 3.6 mmol/L (3.5-5.1); PROTEIN - SERUM 7.9 g/dL (6.4-8.2)
[2017-03-06 16:08] LABS: APPEARANCE HAZY (CLEAR); BILIRUBIN NEGATIVE (NEGATIVE); COLOR YELLOW (YELLOW); GLUCOSE 100 mg/dL (NEGATIVE); KETONE NEGATIVE (NEGATIVE); NITRITE POSITIVE (NEGATIVE); PROTEIN NEGATIVE (NEGATIVE); SPECIFIC GRAVITY 1.015 (1.005-1.020); UROBILINOGEN NORMAL (NORMAL)
[2017-03-06 16:10] LABS: BACTERIA MANY /hpf (NONE SEEN); RED CELLS - URINE OCC /hpf (0-5); WHITE CELLS - URINE 0-5 /hpf (0-5)
--- NOTE | 2017-03-06 21:30 | NUR ---
PATIENT RESTING IN BED WITH NO VISIBLE SIGNS OF DISTRESS. PATIENT DENIES NEEDS AT THIS TIME. BED IN LOWEST POSITION AND CALL LIGHT WITHIN REACH. ENCOURAGED THE PATIENT TO CALL IF SHE HAS NEEDS.
--- NOTE | 2017-03-06 21:57 | NUR ---
PATIENT TAKEN DOWN FOR CT
[2017-03-06 22:06] LABS: HEMATOCRIT 23.4 % (36.0-48.0)
--- NOTE | 2017-03-06 22:09 | NUR ---
REC'D PATIENT BACK FROM CT
[2017-03-06 22:10] LABS: HEMOGLOBIN 7.3 g/dL (12-16)
[2017-03-06 22:16] LABS: % SATURATION 9 % (15-55); IRON 23 ug/dl (35-150); TOTAL IRON BIND CAPACITY 231 ug/dl (260-445); UNSAT IRON BIND CAPACITY 208 ug/dl (150-375)
[2017-03-07] VITALS: BP 158/75
--- NOTE | 2017-03-07 00:03 | NUR ---
STARTED UNIT OF PLATELETS
--- NOTE | 2017-03-07 00:50 | NUR ---
BEGAN TRANSFUSING FIRST UNIT OF PRBC'S
[2017-03-07 01:55] VITALS: BP 132/64; Ht 170.2 cm; Wt 95.5 kg
--- NOTE | 2017-03-07 03:38 | NUR ---
BEGAN INFUSING SECOND UNIT OF PRBC'S
--- NOTE | 2017-03-07 07:00 | NUR ---
REPORT RECIEVED ASSUMED CARE. PATIENT IN BED WITH IV INTACT. NPO FOR PROCEDURE. NO COMPLAINTS AT THIS TIME. CALL LIGHT WITHIN REACH.
[2017-03-07 07:42] LABS: BASOPHILS 0.2 % (0-2); EOSINOPHILS 4.4 % (0-7); IMMATURE GRANULOCYTES 0.1 % (0-5); LYMPHOCYTES 20.1 % (15-50); MCH 25.9 pg (26.0-34.0); MCV 81.1 fL (80.0-100.0); MEAN PLATELET VOLUME 10.7 fL (7.4-10.4); MONOCYTES 7.3 % (2-11); NEUTROPHILS 67.9 % (40-80); PLATELET COUNT 290 10x3/uL (130-400); RBC 3.97 10x6/uL (4.00-5.40); RDW 15.1 % (11.5-14.5); WBC 9.2 10x3/uL (4.8-10.8)
[2017-03-07 07:44] LABS: HEMATOCRIT 32.2 % (36.0-48.0); HEMOGLOBIN 10.3 g/dL (12-16)
[2017-03-07 07:52] LABS: ALBUMIN 2.7 g/dL (3.4-5.0); ANION GAP 13.9 mmol/L (8-16); BILIRUBIN - TOTAL 0.97 mg/dL (0.2-1.3); CALCIUM 8.4 mg/dL (8.5-10.1); CARBON DIOXIDE 23.8 mmol/L (21.0-32.0); CREATININE - SERUM 1.1 mg/dL (0.6-1.3); POTASSIUM - SERUM 3.7 mmol/L (3.5-5.1)
[2017-03-07 07:58] LABS: INR 1.2 (0.85-1.17); PROTIME 15.1 SECONDS (11.6-15.0)
[2017-03-07 08:55] VITALS: BP 180/84
--- NOTE | 2017-03-07 09:00 | NUR ---
PATIENT TO GET EGD DONE AT THIS TIME.
--- NOTE | 2017-03-07 11:20 | NUR ---
PATIENT IN BED WITH IV INTACT. NO COMPLAINTS OR SIGNS OF DISTRESS. PATIENT TOLERATED PO LIQUIDS WITH NO NAUSEA OR VOMITTING. CALL LIGHT WITHIN REACH.
[2017-03-07 11:47] VITALS: BP 182/80
[2017-03-07 15:51] VITALS: BP 149/72
--- NOTE | 2017-03-07 16:00 | NUR ---
PATIENT IN BED WITH IV INTACT. NO COMPLAINTS AT THIS TIME. [facility]
--- NOTE | 2017-03-07 18:32 | NUR ---
PAGED FOR PAIN MEDS AT THIS TIME. PATIENT COMPLAINING OF LEG PAIN. IV INTACT. CALL LIGHT WITHIN REACH.
--- NOTE | 2017-03-07 18:37 | NUR ---
NEW ORDERS RECIEVED AND CARRIED OUT. PATIENT IN BED WITH IV INTACT. NO COMPLAINTS. CALL LIGHT WITHIN REACH.
--- NOTE | 2017-03-07 19:16 | NUR ---
PATIENT RESTING IN BED TALKING ON THE PHONE AND DENIES NEEDS AT THIS TIME. PATIENT HAS C/O 9/10 PAIN. I OFFERED PATIENT ULTRAM THAT WAS ORDERED PER DR. MARTINEZ. PATIENT REFUSED MED. BED IN LOWEST POSITION AND CALL LIGHT WITHIN REACH. ENCOURAGED THE PATIENT TO CALL IF SHE HAS NEEDS.
[2017-03-07 20:00] VITALS: BP 158/75; BP 167/76
[2017-03-08] VITALS: BP 167/76
[2017-03-08 04:00] VITALS: BP 182/83
--- NOTE | 2017-03-08 07:29 | NUR ---
PT NOTE-INCONT OF URINE. CLEANED AND DRY BRIEF PLACED. PT STATES LEG ARE WEAK AND UNABLE TO MOVE THEM MUCH. SCDS ON BILAT. CALL LIGHT IN REACH
--- NOTE | 2017-03-08 08:00 | NUR ---
REC'D IN BED AWAKE AND ALERT. RESP EVEN AND UNLABORED WITH NO DISTRESS NOTED. PROCESS STEWARD EXPRESS NEEDS AND WANTS. ASSESSMENT COMPLETED. C/L IN REACH AT BEDSIDE.
--- NOTE | 2017-03-08 08:22 | HP ---
PATIENT: ARLYN JACOME MEDICAL RECORD: [id number] ACCOUNT: [id number] LOCATION:D.MS Fraga2235 : 48 ADMISSION DATE: 03/06/17 HISTORY AND PHYSICAL EXAMINATION CHIEF COMPLAINT: Diarrhea. HISTORY OF PRESENT ILLNESS: This is a 67-year-old -[place] female who presented to the Emergency Room today with complaints of diarrhea, though she reportedly did not really look at her stool and there was a report that she had a melena. She did have a history of heme-positive stools here. It is reported that she may have some chronic anemia, but again I have no record of those charts. Today, the patient states she had a stent placed [address] Seo and that is not on this medical record at all and reportedly sent home on Plavix and she states that she did not get the Plavix that she is taking a baby aspirin. Today, her hemoglobin is 8.8, hematocrit 28.3 with an MCV of 80. She is admitted for further evaluation and treatment. She states her stomach hurts a little. PAST MEDICAL AND SURGICAL HISTORY: Hypertension, diabetes, heart disease, anemia, and she states she is "power chair bound" and cannot walk and she states she does not know why. PAST SURGICAL HISTORY: Cholecystectomy, hysterectomy, cervical spine surgery, left knee replacement, and breast biopsy. ALLERGIES: Reportedly to LISINOPRIL, IODINE, CODEINE, SILVER, and OMEPRAZOLE. HOME MEDICATIONS: (She is not sure what she is taking) include allopurinol 300 mg a day, Norvasc 10 mg a day, Zebeta once a day, Cardura 2 mg at bedtime, iron 325 mg 3 times a day, Lantus insulin 32 units at bedtime, and Humalog sliding scale. It is reported that she was on Carafate and Plavix, but she does not remember those. SOCIAL HISTORY: She states she lives alone. FAMILY HISTORY: Some heart disease in her father and mother. Father had lung cancer. HABITS: The patient states she has never smoked. No alcohol or drugs. REVIEW OF SYSTEMS: Difficult to get out of her. GENERAL: No major weight changes. HEENT: No particular sinus or allergy problems. RESPIRATORY: No history of emphysema or asthma. CARDIAC: She has history of coronary artery disease and reportedly had a stent recently by Dr. Seo. GASTROINTESTINAL: She is on medicines as if she has ulcers, but she states she is not aware of any problems. GENITOURINARY: No significant problems there. MUSCULOSKELETAL: She has arthritis and has had knee replaced and she states she is not able to walk and is in a wheelchair. She is not sure why. NEUROLOGIC: Denies migraines or seizures. PSYCHIATRIC: Denies depression or melancholia. HISTORY AND PHYSICAL [id number] ARLYN JACOME PHYSICAL EXAMINATION: VITAL SIGNS: Temperature 97.8, pulse 85, respirations 18, blood pressure 181/112. GENERAL: She is awake and alert. She does not appear to be in acute distress, but seems distant and evasive. HEENT: Unremarkable. NECK: Supple. HEART: Regular rate and rhythm without murmur. LUNGS: Clear. ABDOMEN: Soft and maybe a little tenderness. No guarding, no rebound, no mass. RECTAL: Exam done in the Emergency Department shows heme-positive stool, it is dark greenish black. LABORATORY DATA: CBC with a white count of 11,100, hemoglobin 8.8, hematocrit 28.3, MCV is 80, platelets number 292,000. INR 1.0. Basic metabolic panel: BUN is 21, creatinine 1.1, glucose 205. The rest of BMP is okay. Liver functions are okay. Urinalysis shows 1+ blood, many bacteria, but there are 5-10 epithelial cells, which suggests a contaminated specimen. ASSESSMENT: 1. Abdominal pain. 2. Anemia, chronic versus acute. 3. Weakness. 4. Diabetes. 5. Coronary artery disease with recent stent, reportedly on Plavix. PLAN: Dr. Martinez has been consulted. We will start Carafate and Pepcid as she is reportedly allergic to omeprazole. She will be transfused with blood and further tests and recommendations per Dr. Martinez. TRANSINT:[id number] Voice Confirmation ID: [id number] DOCUMENT ID: [id number] DANG MARTINEZ MD at 0822 CC: [id number] DICTATION DATE: 03/07/17 1318 METHODS STUDY ANALYST: 03/07/17 1408 ADM IN [id number] [place] [address]
[2017-03-08 08:38] VITALS: BP 185/95
--- NOTE | 2017-03-08 09:07 | CN ---
PATIENT NAME:ARLYN JACOME MEDICAL RECORD: [id number] : 46 LOCATION:D.MS Fraga2235 ADMIT DATE: 03/06/17 ACCOUNT: [id number] CONSULTING PHYSICIAN: LV MARADIAGA MD REFERRING PHYSICIAN: DANG MARTINEZ MD DATE OF CONSULTATION: 03/07/2017 HISTORY OF PRESENT ILLNESS: Arlyn Jacome is a 67-year-old female with a known history of coronary artery disease, status post recent intervention of the LAD by Dr. Seo. She apparently was not discharged on Plavix. She came in with anemia, possible GI bleed. She does have a history of chronic anemia as well. She is feeling better post transfusion. She had no angina. We are asked to see her concerning her cardiovascular status. PAST MEDICAL HISTORY: Includes: 1. History of hypertension. 2. Hyperlipidemia. 3. Coronary artery disease as described above. 4. Diabetes mellitus. ALLERGIES: IODINE. MEDICATIONS: Include allopurinol 300 mg p.o. every day, insulin per scale, Neurontin 600 mg t.i.d., aspirin 81 every day, atorvastatin 20 every day, losartan 25 every day, iron supplementation 325 daily. SOCIAL HISTORY: Currently has problem with ADLs. She gets around with motorized wheelchair. Nonsmoker, nondrinker. REVIEW OF SYSTEMS: The patient reports easy bruising but reports no swollen glands. The patient reports no fever, no night sweats, no significant weight gain, no significant weight loss. No significant exercise tolerance. The patient reports no dry eyes, no irritation, no vision change. Patient reports no difficulty hearing and no ear pain. Patient reports no frequent nose bleeds or nose and sinus problems. Patient reports on arm pain on exertion. No shortness of breath while lying down. No history of heart murmur. Patient reports no cough, no wheezing or coughing up blood. Patient reports no abdominal pain, no vomiting. Normal appetite. No diarrhea and not vomiting blood. No nausea and no constipation. Patient reports no incontinence. No difficulty urinating. No hematuria. No increased frequency. Patient reports no muscle aches. No weakness, no arthralgias, no back pain. No swelling of the extremities. Patient reports no abnormal mole, no jaundice, no rashes. Reports no loss of consciousness. No weakness and no numbness. No seizures, dizziness, or headaches. The patient reports no depression, no sleep disturbance, feeling safe in a relationship and no alcohol abuse. Patient reports on fatigue. Reports no runny nose or sinus pressure. No itching, no hives, and no frequent sneezing. PHYSICAL EXAMINATION: GENERAL: Pleasant female in no acute distress, appears comfortable. VITAL SIGNS: Blood pressure currently 132/64, pulse 67 and regular. HEENT: Normocephalic, atraumatic. NECK: No bruits are noted. HEART: Regular, 2/6 systolic ejection murmur. LUNGS: Good air excursion. CONSULT REPORT [id number] ARLYN JACOME ABDOMEN: Soft, nontender. EXTREMITIES: Pulses are decreased 1+. There is no edema. NEUROLOGIC: Grossly intact. DIAGNOSTIC DATA: ECG without acute change. IMPRESSION: At this point in time, given the chronic nature of her anemia, we will go ahead and restart Plavix and she will hold aspirin at that time. Okay for endoscopy upper and lower from my standpoint. TRANSINT:[id number] Voice Confirmation ID: [id number] DOCUMENT ID: [id number] LV MARADIAGA MD at 0907 CC: [id number] DICTATION DATE: 03/07/17 1039 LOGISTICS SERVICE REPRESENTATIVE: 03/07/17 1220 ADM IN [id number] [place] [address]
[2017-03-08] MEDS ORDERED: REQUIP0.25 MG PO (11:18)
[2017-03-08] MEDS ORDERED: FLAGYL500 MG PO (11:19)
[2017-03-08] MEDS ORDERED: LEVAQUIN500 MG PO (11:19)
--- NOTE | 2017-03-08 13:23 | NUR ---
Is the patient Alert and Oriented? Yes 0 * How many steps to enter\exit or inside your home? NONE 0 * PCP DR HERRERA 0 * Pharmacy [facility] [address] * Preadmission Environment Home Alone 0 * ADLs Independent 0 * Equipment Bedside Commode 0 * Other Equipment POWER WHEELCHAIR RAMP SHOWER CHAIR TRANSFER BOARD 0 * List name and contact numbers for known caregivers / representatives who currently or will assist patient after discharge: [facility] [phone] [facility] [phone] 0 * Community resources currently utilized Home Health 0 * Please name any agencies selected above. [facility] 0 * Additional services required to return to the preadmission environment? Yes 0 * Can the patient safely return to the preadmission environment? Yes 0 * Has this patient been hospitalized within the prior 30 days at any hospital? Yes
--- NOTE | 2017-03-08 13:31 | NUR ---
CM MET W/ PATIENT AT THE BEDSIDE. SHE WILL BE RETURNING TO HER APARTMENT. SHE IS CONSIDERING MOVING TO [place]. SHE HAS LIMITED ASSISTANCE FROM FAMILY. HAS SOME ASSISTANCE FROM [facility]. SHE STATED SHE WAS ON SERVICE W/ [facility]. [facility] CALLED AND [place] [facility] STATED SHE HAD BEEN DISCHARGED FROM SERVICE. PCP -DR HERRERA UNIFORMER- DR NOWAK LAP MAKER- DR [facility] D[facility]- POWER WHEELCHAIR, SLIDING BOARD , SHOWER BENCH AND COMMODE PATIENT HAS HAD MULTIPLE ADMISSIONS TO [facility] AND [facility]. SHE HAS ALSO HAD SKILLED STAY AT [facility] AND [facility]. HAD A RECENT ACUTE REHAB STAY AT [facility]. PATIENT IS CALLING FRIEND AND FAMILY REGARDING TRANSPORTATION TO HOME. WILL FAX INFORMATION TO PCP FOR HOME HEALTH ORDERS.
--- NOTE | 2017-03-08 14:02 | NUR ---
TC TO DR HERRERA'S OFFICE TO ADVISE OF ADM & DISCHARGE. FAXED CLINICAL UPDATE TO PATIENT'S OWN MD. ADVISED SHE WOULD LIKE TO RESUME HOME HEALTH. OFFICE- [phone] FAX [phone]
--- NOTE | 2017-03-08 16:40 | NUR ---
PT WAS DISCHARGE HOME AT THIS TIME WITH PERSONAL BELONGS AND D/C PAPERWORK. WAS IN STABLE CONDITION UPON DEPARTURE VIA WITH FAMILY AT SIDE.
[2017-03-09 06:13] LABS: FOLATE (FOLIC ACID) - SERUM 7.9 ng/mL (>3.0)
== END 2017-03-08 16:42 | disposition home health service (06) | DRG 379 ==
LOC: D.MS → D.ER 14:34 → D.MS 16:45
PROVIDERS: Emergency Medicine; Internal Medicine Gastroenterology; ADMIT Family Medicine
PROC: 0DB78ZX Excision of Stomach, Pylorus, Via Natural or Artificial Opening Endoscopic, Diagnostic (ICD-10-PCS; 2017-03-07)
PROC: 0DB98ZX Excision of Duodenum, Via Natural or Artificial Opening Endoscopic, Diagnostic (ICD-10-PCS; principal; 2017-03-07 09:36)
DX: K92.2 Gastrointestinal hemorrhage, unspecified (principal); K20.9 Esophagitis, unspecified; K29.70 Gastritis, unspecified, without bleeding; K29.80 Duodenitis without bleeding; I10 Essential (primary) hypertension; E78.5 Hyperlipidemia, unspecified; E11.9 Type 2 diabetes mellitus without complications; Z79.4 Long term (current) use of insulin; I25.10 Atherosclerotic heart disease of native coronary artery without angina pectoris; Z95.5 Presence of coronary angioplasty implant and graft; D64.89 Other specified anemias; G25.81 Restless legs syndrome; Z86.73 Personal history of transient ischemic attack (TIA), and cerebral infarction without residual deficits

== ENCOUNTER 2019-04-26 06:30 | Day surgery (SDC) | payer MEDICARE ==
[~2019-04-26] VITALS: Ht 170.2 cm; Wt 112.0 kg
--- NOTE | ~2019-04-26 | OP ---
PATIENT NAME: ARLYN JACOME MEDICAL RECORD: [id number] :46 LOCATION:D.OPS ADMISSION DATE: SURGEON: DRISS REYES MD DATE OF OPERATION: 04/26/2019 PREOPERATIVE DIAGNOSIS: Functioning radiocephalic fistula that has not developed to the point where it can be used for hemodialysis access. POSTOPERATIVE DIAGNOSES: Functioning radiocephalic fistula that has not developed to the point where it can be used for hemodialysis access, with numerous side branches. PROCEDURE: 1. Right upper extremity AV fistula revision. 2. Ligation of side branches times 16 through 13 incisions under ultrasonographic guidance. SURGEON: Driss Reyes MD CORONER/MEDICAL EXAMINER: Aaron Yancey BLOOD LOSS: 100 cc. ANESTHESIA: General. COMPLICATIONS: None. The patient was seen in the holding area. Initially, I was going to place a new access. However, the patient really has an excellent thrill at the right wrist. My plan then was going to be to dilate the arterial anastomosis and also dilate the outflow veins to allow for a larger conduit. I was also going to ligate side branch should I identify them. The revision portion of this procedure was lysis of the outer coat of portions of the vein to allow it to expand. This was a sharp division of the outer coat of the vein. The patient was conveyed to the operating room electively on 04/26/2019. General anesthesia was induced by the anesthesia staff. The right upper extremity was abducted to 90 degrees to the patient's trunk. The right extremity was sterilely prepped and draped. Under ultrasonographic guidance, I identified numerous side branches off the cephalic vein as it coursed from the wrist to the division into the cephalic and median cubital vein and then the basilic vein at the cubital fossa. Then I followed this up into the arm. Numerous side branches were identified. Small incisions were accomplished. The side branches were ligated with 4-0 silks. There was some bleeding from the cephalic vein in the proximal forearm. This was controlled with a [id number] 7-0 Prolene suture. At some of the larger incisions, I lysed the outer coat of the cephalic vein to allow it to expand. This was done sharply with scissors. At the end of the procedure, there was an excellent thrill at the right wrist. There was a thrill in the cubital fossa. I examined the entire upper extremity OPERATIVE REPORT [id number] ARLYN JACOME with the hand-held Doppler as well as the color Doppler. There was Doppler signal and out into the hand as well as over the ulnar artery. The skin was closed with running 3-0 Vicryl sutures and then sterile dressings. The patient was then extubated and conveyed to post-anesthesia care unit where she was in stable condition. My plan is to bring her back in 4-6 weeks for percutaneous balloon angioplasty of the cephalic vein as well as the radiocephalic anastomosis. I felt that insertion of the sheath between the incisions would lead to bleeding particularly on removing the sheaths. Usually, I would use a pursestring suture and I am certain that the bleeding would have traveled underneath the skin and come out through the skin incisions leading to really an unsatisfactory condition, which might require ligation of the arteriovenous fistula. TRANSINT:[id number] Voice Confirmation ID: [id number] DOCUMENT ID: [id number] DRISS REYES MD CC: LAQUITA RAMSAY MD and ROSALINA CASTILLO [id number] DICTATION DATE: 04/26/19 1301 SAMPLE CLERK: 04/26/192200 [facility] 04/26/19 [facility] [address] [place] [address]
[~2019-04-26 06:30] MED LIST changes: +FLAGYL500 MG PO; +LEVAQUIN500 MG PO; +REQUIP0.25 MG PO
[2019-04-26 07:11] LABS: BASOPHILS 0.2 % (0-2); EOSINOPHILS 5.5 % (0-7); HEMATOCRIT 43.7 % (36.0-48.0); HEMOGLOBIN 13.2 g/dL (12-16); IMMATURE GRANULOCYTES 0.3 % (0-5); LYMPHOCYTES 21.4 % (15-50); MCH 26.7 pg (26.0-34.0); MCHC 30.2 g/dL (31.0-37.0); MCV 88.3 fL (80.0-100.0); MEAN PLATELET VOLUME 9.9 fL (7.4-10.4); MONOCYTES 8.3 % (2-11); NEUTROPHILS 64.3 % (40-80); PLATELET COUNT 222 10x3/uL (130-400); RBC 4.95 10x6/uL (4.00-5.40); WBC 9.3 10x3/uL (4.8-10.8)
[2019-04-26 07:26] LABS: CARBON DIOXIDE 25.9 mmol/L (21.0-32.0); CREATININE - SERUM 6.1 mg/dL (0.6-1.3); POTASSIUM - SERUM 3.9 mmol/L (3.5-5.1)
[2019-04-26 07:59] LABS: APTT 35.8 SECONDS (22.8-39.4); INR 1.12 (0.85-1.17); PROTIME 14.3 SECONDS (11.6-15.0)
[2019-04-26] MEDS ORDERED: IPRAT-ALBUT 0.5-3 ML UPD (08:18)
[2019-04-26] MEDS ORDERED: TOPROL XL50 MG PO (08:19)
[2019-04-26] MEDS ORDERED: ROCEPHIN 1 GM/D51 G1 IV (08:20)
[2019-04-26] MEDS ORDERED: BUMEX2 MG PO (08:21)
[2019-04-26] MEDS ORDERED: PROTONIX40 MG PO (08:21)
[2019-04-26] MEDS ORDERED: ISOSORBIDE MONO30 M1 PO (08:22)
[2019-04-26] MEDS ORDERED: LIPITOR20 MG PO (08:23)
[2019-04-26] MEDS ORDERED: BISOPROLOL FUMAR5 MG PO (08:23)
[2019-04-26] MEDS ORDERED: GABAPENTIN100 MG PO (08:24)
[2019-04-26] MEDS ORDERED: CHRONULAC30 ML PO (08:24)
[2019-04-26] MEDS ORDERED: PLAVIX75 MG PO (08:26)
[2019-04-26] MEDS ORDERED: ACETAMINOPHEN500 M1 PO (08:29)
[2019-04-26] MEDS ORDERED: ACEROLA C500 MG PO (08:29)
[2019-04-26] MEDS ORDERED: ZITHROMAX500 MG PO (08:29)
[2019-04-26] MEDS ORDERED: OS-CAL500 MG PO (08:30)
[2019-04-26] MEDS ORDERED: PULMICORT0.25 MG/1 INH (08:30)
[2019-04-26] MEDS ORDERED: CLARITIN 10 MG10 MG PO (08:31)
[2019-04-26] MEDS ORDERED: CALCIUM 600 +1 EAC3 PO (08:31)
[2019-04-26] MEDS ORDERED: CARAFATE1 G PO (08:31)
[2019-04-26] MEDS ORDERED: COLACE100 MG PO (08:32)
[2019-04-26] MEDS ORDERED: MIRALAX17 GM PO (08:33)
[2019-04-26] MEDS ORDERED: GUAIFENESI100 MG/5 M PO (08:34)
[2019-04-26] MEDS ORDERED: AZO STANDARD95 MG PO (08:34)
[2019-04-26] MEDS ORDERED: HYDROCODON-ACE1 EAC2 PO (08:35)
[2019-04-26] MEDS ORDERED: MIRAPEX0.5 MG PO (08:35)
[2019-04-26] MEDS ORDERED: NOVOLOG100 UNIT/1 SC (08:36)
[2019-04-26 08:39] VITALS: BP 183/100; Ht 170.2 cm; Wt 112.0 kg
== END 2019-04-26 18:40 | disposition home or self-care (01) ==
LOC: D.OPS 06:30
PROVIDERS: Anesthesiology; ATTEND Surgery
DX: L98.8 Other specified disorders of the skin and subcutaneous tissue (principal)

== ENCOUNTER 2019-08-04 06:42 | Inpatient (IN) | payer MEDICARE ==
[~2019-08-04] VITALS: Ht 157.5 cm; Wt 105.0 kg
[~2019-08-04 06:42] MED LIST changes: +ACEROLA C500 MG PO; +ACETAMINOPHEN500 M1 PO; +AZO STANDARD95 MG PO; +BAYER CHEWABLE81 MG PO; +BISOPROLOL FUMAR5 MG PO; +BUMEX2 MG PO; +CALCIUM 600 +1 EAC3 PO; +CHRONULAC30 ML PO; +CLARITIN 10 MG10 MG PO; +COLACE100 MG PO; +GABAPENTIN100 MG PO; +GLUCOSE GEL 40%; +GUAIFENESI100 MG/5 M PO; +HYDRALAZINE HCL50 MG; +HYDROCODON-ACE1 EAC2 PO; +IPRAT-ALBUT 0.5-3 ML UPD; +ISOSORBIDE MONO30 M1 PO; +MIRALAX17 GM PO; +MIRAPEX0.5 MG PO; +NOVOLOG100 UNIT/1 SC; +OS-CAL500 MG PO; +PROTONIX40 MG PO; +PULMICORT0.25 MG/1 INH; +ROCEPHIN 1 GM/D51 G1 IV; +TOPROL XL50 MG PO; +ZITHROMAX500 MG PO
[2019-08-04 07:23] LABS: BASOPHILS 0.6 % (0-2); EOSINOPHILS 7.8 % (0-7); HEMATOCRIT 37.9 % (36.0-48.0); HEMOGLOBIN 11.4 g/dL (12-16); IMMATURE GRANULOCYTES 0.1 % (0-5); LYMPHOCYTES 25.9 % (15-50); MCH 27.7 pg (26.0-34.0); MCHC 30.1 g/dL (31.0-37.0); MCV 92.2 fL (80.0-100.0); MEAN PLATELET VOLUME 10.3 fL (7.4-10.4); MONOCYTES 7.2 % (2-11); NEUTROPHILS 58.4 % (40-80); PLATELET COUNT 245 10x3/uL (130-400); RBC 4.11 10x6/uL (4.00-5.40); RDW 16.1 % (11.5-14.5); WBC 10.6 10x3/uL (4.8-10.8)
[2019-08-04 07:42] LABS: POTASSIUM - SERUM 3.9 mmol/L (3.5-5.1)
[2019-08-04 07:51] LABS: ANION GAP 15.4 mmol/L (8-16); CALCIUM 9.2 mg/dL (8.5-10.1); CARBON DIOXIDE 26.5 mmol/L (21.0-32.0); CREATININE - SERUM 6.7 mg/dL (0.6-1.3)
--- NOTE | 2019-08-04 08:45 | NUR ---
PER INFECTION CONTROL, NO MRDO'S DUE TO PRIOR HOSPITALIZATIONS
--- NOTE | 2019-08-04 18:01 | HP ---
PATIENT: ARLYN JACOME MEDICAL RECORD: [id number] ACCOUNT: [id number] LOCATION:[address] : 46 ADMISSION DATE: 08/04/19 PCP: ALTAF LIAO MD HISTORY AND PHYSICAL EXAMINATION CHIEF COMPLAINT: Malfunctioning arteriovenous fistula. HISTORY OF PRESENT ILLNESS: I have operated on the patient in the past. She has a radiocephalic arteriovenous fistula on the right; however, it has not been used for dialysis access. She underwent ligation of some side branches when I operated on her in the past. She is currently being dialyzed successfully via a tunneled catheter. She states that she usually goes to [facility], but came here this time. She can take hydrocodone for pain, although she is ALLERGIC TO CODEINE. The fistula is functional. The risks, possible complications, alternatives to the procedure were explained to the patient. She elects to proceed. ALLERGIES: CODEINE, IODINE, LEVOFLOXACIN, LISINOPRIL, PRAVASTATIN, FLAGYL, MACROBID, REQUIP, AND ADHESIVES. 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 She is a FULL CODE. HOME MEDICINES: Please see the nursing list. PHYSICAL EXAMINATION: GENERAL: The patient does not appear acutely ill. She does appear chronically ill. VITAL SIGNS: Reviewed. The entire physical examination was performed in the presence of a female nurse form setter helper. PSYCHIATRIC: Normal affect. NEUROLOGIC: Slurred speech. ABDOMEN: No peritonitis with movement. EXTREMITIES: As described above. IMPRESSION: Nonfunctional right upper extremity arteriovenous fistula, which is functional, but cannot be accessed. PLAN: Right upper extremity fistulogram, possible balloon angioplasties, possible stenting, possible open procedure. TRANSINT:[id number] Voice Confirmation ID: [id number] DOCUMENT ID: [id number] HISTORY AND PHYSICAL [id number] ARLYN JACOME ROBERT MD at 1801 CC: LAQUITA RAMSAY MD [id number] DICTATION DATE: 08/04/19 1112 DEEP FRYER ASSEMBLER: 08/04/19 1223 [facility] [address] [facility]
--- NOTE | 2019-08-04 18:27 | NUR ---
PT TO ROOM FROM PACU ON BED. RIGHT ARM IN SLING. PT AWAKE AND ALERT, ASKING TO EAT. TRAY ORDERED. WHEELCHAIR AND BELONGINGS IN ROOM.
--- NOTE | 2019-08-04 20:15 | NUR ---
REPORT RECEIVED. PT CARE ASSUMED. PT IN BED RESTING WITH EYES CLOSED. NO S/SX OF DISTRESS OBSERVED AT THIS TIME. CALL LIGHTIN REACH. SRX2, WILL CTM.
--- NOTE | 2019-08-04 21:00 | NUR ---
PT AWAKE EATING. MILD C/O OF PAIN TO RIGHT ARM. NO S/SX OF DISTRESS. WILL CTM.
[2019-08-04 21:20] VITALS: BP 117/54
[2019-08-05 01:30] VITALS: BP 117/63
[2019-08-05 01:50] VITALS: BP 117/63; BMI 40.9
[2019-08-05 04:43] VITALS: BP 152/74
[2019-08-05 06:23] LABS: MAGNESIUM - SERUM 2.6 mg/dL (1.8-2.4); PHOSPHOROUS 6.1 mg/dL (2.5-4.9)
--- NOTE | 2019-08-05 07:43 | NUR ---
PT AWAKE AND ORIENTED, LYING IN BED. ASKED WHEN SHE'LL BE GOING TO DIALYSIS TODAY. ANSWERED ALL QUESTIONS TO THE BEST OF MY ABILITY. CL IN REACH, SRX2. NO COMPLAINTS OR CONCERNS AT THIS TIME.
[2019-08-05 08:55] VITALS: BMI 42.3
[2019-08-05] MEDS ORDERED: MULTI-DAY VITAM1 TAB PO (09:23)
[2019-08-05] MEDS ORDERED: PLAVIX75 MG PO (09:24)
[2019-08-05] MEDS ORDERED: NITROSTAT0.4 MG SL (09:24)
--- NOTE | 2019-08-05 09:49 | MORECARE ---
CASE MANAGEMENT DISCHARGE SUMMARY PATIENT: ARLYN JACOME UNIT: [id number] ADM DATE: 08/04/19 AGE: 69 : 48 SEX: F ROOM/BED: D.210 AUTHOR: TRINY MORENO PHYSICIAN: REFERRING PHYSICIAN: DRISS REYES MD DATE OF SERVICE: 08/05/19 Discharge Plan Patient Name: ARLYN JACOME Facility: [facility]:[place] : 1950 Planned Disposition: [facility] Care Fac MCR Anticipated Discharge Date: 08/05/19 Discharge Date: Expected LOS: 1 Initial Reviewer: [email or web address] Initial Review Date: 08/04/2019 Generated: 08/05/19 10:48 am DCP- Discharge Planning Updated by [email or web address]: Aye Rangel on 08/05/19 8:[address] Patient is a resident of [facility]. Contacted [facility] regarding transportation post HD and he states the facility will transport her back. [facility] #[phone]. CM contacted patient who is in agreement to return to the facility after HD. Regular HD days are M/W/F at [facility]. Patient voices no additional needs. Patient states her daughters are aware that she is here at [facility]. Daughters: Fidelina Atkinson #[phone]. Oralia Lopez #[phone]. Patient Name: ARLYN JACOME Page [id number] at 0949 All edits/amendments must be made on the electronic document DICTATION DATE: 08/05/19947 GLASS SILVERER: JULISSA 08/05/19947 RPT#: [id number] DC DATE: STATUS: ADM IN [facility] [address] [place] [address] END OF REPORT
--- NOTE | 2019-08-05 09:55 | MORECARE ---
CASE MANAGEMENT DISCHARGE SUMMARY PATIENT: ARLYN JACOME UNIT: [id number] ADM DATE: 08/04/19 AGE: 69 : 48 SEX: F ROOM/BED: D.210 AUTHOR: TIFFANIE,DOC PHYSICIAN: REFERRING PHYSICIAN: DRISS REYES MD DATE OF SERVICE: 08/05/19 Discharge Plan Patient Name: ARLYN JACOME Facility: [facility]:[place] : 1950 Planned Disposition: Skilled Nursing Care Fac MCR Anticipated Discharge Date: 08/05/19 Discharge Date: Expected LOS: 1 Initial Reviewer: [email or web address] Initial Review Date: 08/04/2019 Generated: 08/05/19 10:55 am DCP- Discharge Planning Updated by [email or web address]: Aye Claire on 08/05/19 8:[address] Patient is a resident of [facility]. Contacted [facility] regarding transportation post HD and he states the facility will transport her back. [facility] #[phone]. CM contacted patient who is in agreement to return to the facility after HD. Regular HD days are M/W/F at [facility]. Patient voices no additional needs. Patient states her daughters are aware that she is here at [facility]. Daughters: Fidelina Atkinson #[phone]. Oralia Lopez #[phone]. DCPIA - Discharge Planning Initial Assessment Updated by [email or web address]: Aye Rangel on 08/05/19 9:52 am * Is the patient Alert and Oriented? Yes * How many steps to enter\exit or inside your home? * Pharmacy Nursing facility * Preadmission Environment Skilled Nursing [facility] * ADLs Partial Dependent * Partial ADLs (Assistance needed) Ambulation Bathing Dressing Medication Management Toileting Transfers * Equipment Oxygen * Other Equipment Hospital bed, w/c * List name and contact numbers for known caregivers / representatives who currently or will assist patient after discharge: Fidelina Atkinson (dtr) [phone] Oralia Kenny (dtr) [phone] * Verbal permission to speak to the caregivers and representatives has been obtained from the patient. Yes * Community resources currently utilized Other * Please name any agencies selected above. [facility] * Additional services required to return to the preadmission environment? No * Can the patient safely return to the preadmission environment? Yes * Has this patient been hospitalized within the prior 30 days at any hospital? No Last DP export: 08/05/19 8:49 a Patient Name: ARLYN JACOME Page [phone] at 0955 All edits/amendments must be made on the electronic document DICTATION DATE: 08/05/19954 COUNTER STACKER: JULISSA 08/05/19954 RPT#: [id number] DC DATE: STATUS: ADM IN [facility] [address] [place] [address] END OF REPORT
[2019-08-05 09:56] VITALS: Ht 157.5 cm; Wt 105.0 kg
[2019-08-05 10:20] VITALS: BP 167/71
--- NOTE | 2019-08-05 14:25 | NUR ---
PT ESCORTED OUT VIA WHEELCHIAR TO [place].
== END 2019-08-05 14:26 | DRG 252 ==
LOC: D.OPS 06:42 → D.M2 06:42 → D.OPS 10:00 → D.M2 17:49 → D.OPS 19:58 → D.M2 19:59
PROVIDERS: ADMIT Surgery; ATTEND Surgery
PROC: 05WY3KZ Revision of Nonautologous Tissue Substitute in Upper Vein, Percutaneous Approach (ICD-10-PCS; 2019-08-04)
PROC: 05L90ZZ Occlusion of Right Brachial Vein, Open Approach (ICD-10-PCS; 2019-08-04)
PROC: B51W1ZZ Fluoroscopy of Dialysis Shunt/Fistula using Low Osmolar Contrast (ICD-10-PCS; principal; 2019-08-04 11:30)
DX: T82.590A Other mechanical complication of surgically created arteriovenous fistula, initial encounter (principal); N18.6 End stage renal disease; I13.2 Hypertensive heart and chronic kidney disease with heart failure and with stage 5 chronic kidney disease, or end stage renal disease; Y84.9 Medical procedure, unspecified as the cause of abnormal reaction of the patient, or of later complication, without mention of misadventure at the time of the procedure; E11.22 Type 2 diabetes mellitus with diabetic chronic kidney disease; I50.9 Heart failure, unspecified; D63.1 Anemia in chronic kidney disease; K21.9 Gastro-esophageal reflux disease without esophagitis; J44.9 Chronic obstructive pulmonary disease, unspecified; I25.10 Atherosclerotic heart disease of native coronary artery without angina pectoris; Z86.73 Personal history of transient ischemic attack (TIA), and cerebral infarction without residual deficits

== ENCOUNTER → 2020-09-06 07:36 | Outpatient (CLI) | payer MEDICARE ==
[2019-08-05 09:56] VITALS: BMI 42.3
[~2020-09-06 07:36] MED LIST changes: +MULTI-DAY VITAM1 TAB PO; +NITROSTAT0.4 MG SL
== END | disposition home or self-care (01) ==
LOC: D.LABREF 07:36
PROVIDERS: ATTEND Family Medicine
DX: N18.4 Chronic kidney disease, stage 4 (severe) (principal); E11.8 Type 2 diabetes mellitus with unspecified complications; M10.9 Gout, unspecified